=== PATIENT | female | born 1945 | race Caucasian/White ===

== ENCOUNTER 2018-05-16 08:44 | Inpatient (IN) ==
[2018-05-16] MEDS ORDERED: ALUMINUM/MAGNESIUM SUSP 30 ML UDC PO PRN (12:30)
[2018-05-16] MEDS ORDERED: ACETAMINOPHEN 325 MG TAB PO PRN (12:30)
[2018-05-16] MEDS ORDERED: ONDANSETRON INJ 2 MG/ML 2 ML VIAL IV PRN (12:30)
[2018-05-16] MEDS ORDERED: POLYETHYLENE (MIRALAX) 17 GM PACK PO PRN (12:30)
[2018-05-16] MEDS ORDERED: MAGNESIUM HYDROXIDE SUSP 30 ML UDC PO PRN (12:30)
--- NOTE | 2018-05-16 13:05 | History & Physical Report ---
Date of Service May 16, 2018 Assessment & Plan (1) Jaundice: Jaundice/Elevated LFTs -MRCP ordered, consider HIDA scan tomorrow -GBUS from OSH showed sludge in GB, thickened wall (4-5mm) -GI consulted, appreciate recs tomorrow -PRN morphine for acute pain -NPO from midnight -Repeat labs in AM -Labs from OSH this AM: TBili 13.2, DB 7, AST 303, ALT 598, Alk Phos 285 CAD/HTN -Continue home statin, ASA, metoprolol XL 25 -Patient reportedly takes 1.5 tabs of her toprol xl, however rates have been low, may need to consider adjusting Hereditary spherocytosis -s/p 2U PRBCs at [facility] -Patient had been started on folic acid 1mg daily at [facility], will defer to primary team if this should be continued. -Continue to monitor CC -Stool heme neg DVTP: none currently ordered due to potential for procedure tomorrow, reassess CODE: full DISPO: med/surg, awaiting further evaluation (2) Elevated LFTs: (3) HTN (hypertension): (4) CAD (coronary artery disease): (5) Hereditary spherocytosis: History of Present Illness Chief Complaint: Abnormal LFTs Primary Care Provider: Dav Arroyo Riley Patient is a pleasant 72 yo F PMH HTN, CAD, "valvular heart disease", hereditary spherocytosis who presents as a direct admit from [facility] due to abnormal LFTs. 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 She was admitted for chest pain rule out. Pt has h/o cardiac cath in 10/2017 which showed hemodynamically insignificant eccentric LAD blockage of 60%. No EKG changes were found and trops were neg x 3. Pt's pain did not improve significantly with nitro, but maalox and 1 dose of morphine did resolve the pain. Labs on admission were otherwise insignificant; baseline anemia, heme neg stool, normal WBC, vitals stable. Yesterday, patient had acute abdominal pain, new onset jaundice and a notable decrease in hemoglobin to 7.9. She was transfused 2U PRBC and her Hb jens to 11.5 today. She also notes very dark "coffee" colored urine and [id number]-uxot-epupt stool. She is unsure if she has been losing weight or not recently. Also noted on today's labs were the following: TBili 13.2 (5.7), DBili 7, AST 303 (100), A LT 598 (72), Urine urobili >8 urine bili 1+. GBUS showed sludge in GB and thickened GB wall (4-5mm).Patient was transferred for further evaluation and investigation into sudden change in LFTs. Patient currently asymptomatic. Notes jaundice and abnormal urine color. Allergies Allergy/AdvReac Type Severity Reaction Status Date / Time chocolate flavor Allergy Severe MIGRANES Verified 02/11/12 12:44 Sulfa (Sulfonamide Allergy Severe Rash Verified 05/16/18 13:33 Antibiotics) Home Medications Home Medications Medication Instructions Recorded Confirmed Type CYANOCOBALAMIN (VITAMIN B-12 INJ) #0 02/11/12 History Lactobacillus Acidophilus 1 tab PO TID #0 tab 02/11/12 History (Lactinex) MULTIPLE VITAMIN (MULTIVITAMIN) 1 tab PO DAILY #0 tab 02/11/12 History aspirin 05/16/18 History atorvastatin 05/16/18 History metoprolol succinate 05/16/18 History Past Med/Surg History Medical History CAD (coronary artery disease) HTN (hypertension) Hereditary spherocytosis Surgical History History of appendectomy Family History Father Heart attack Social History Preferred Language: Thai Communication Ability: Effective 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 Beliefs That Will Affect Care: None Current Living Situation: Spouse Other Information That Helps Us Care for You: No Feels Safe at Home: Yes Safety Concerns: Feels Safe At This Time Smoking Status: Never smoker Hx Alcohol Use: Yes Hx Substance Use: No Review of Systems All systems reviewed & are unremarkable except as noted in HPI & below Constitutional: no fever, no chills, no body aches and no anorexia Ear, Nose, Mouth, Throat: + dry mouth Respiratory: no cough and no dyspnea Cardiovascular: no chest pain, no radiating jaw, neck or arm pain and no edema Gastrointestinal: + change in stools; no abdominal pain, no belching, no nausea and no vomiting Genitourinary (Female): + problem reported (brown-colored urine) Musculoskeletal: + back pain (chronic x 1 year) Integumentary: + dry skin, + yellowing of the skin and + change in skin color Physical Exam Vital Signs (Past 24 Hours): Last Vital Signs Temp 36.6 C 05/16/18 11:43 Pulse 67 05/16/18 11:43 Resp 16 05/16/18 11:43 BP 135/62 05/16/18 11:43 Pulse Ox 95 05/16/18 11:43 Constitutional: WD/WN, vitals as above no acute distress and not ill appearing Eyes: + scleral abnormality (Scleral icterus) ENMT: Mouth: + oral mucosal abnormality (Dry mouth) Neck: normal visual inspection Respiratory: normal respiratory effort, lungs clear to auscultation Cardiovascular: Rate/Rhythm: regular rhythm and + bradycardic Heart Sounds: no murmur Gastrointestinal (Abdomen): Inspection/Auscultation: abdomen normal to inspection and normal bowel sounds Percussion/Palpation: + abdomen tender (Macedo's sign +in RUQ, - in LUQ) Musculoskeletal: no cyanosis or clubbing, extremities motor strength 5/5 Skin: + turgor decreased and + jaundice Neurologic: PERRL, EOMI, accommodation nl, no face palsy, no dysarthria Psychiatric: A+Ox3, euthymic affect Code Status & VTE Plan Code Status Full Supervising Physician Co-Signing Physician Notes I saw and examined the patient independently. I discussed the plan of care with the resident with the following summary/exceptions: 72yo F w/ hx of non-obstructive CAD (60% LAD lesion on cath in 10/2017, no stent), HTN, and hereditary spherocytosis who presents as a transfer from [facility] with elevated liver enzymes and Tbili for further GI work-up. Today, apart from being jaundice, she is entirely asymptomatic. Feels well. No focal infectious findings, and no further abdominal pain, nausea, vomiting, or other symptoms. 1) Jaundice - Ddx includes hemolysis vs. obstructive process vs. combination. Likely some hemolysis from her spherocytosis, but with the acute elevation the 2nd day of hospitalization, concern for obstructive process as well. MRCP pending, GI consult and labs in the morning. Currently pain-free. 2) CAD - 60% LAD lesion on cath in 10/2017, no stent. Troponins negative x 3 at [facility] and no EKG changes. Continue beta-aly. 3) HTN - Normotensive while here. Continue beta-aly. Resident Activity Tracking Resident Involvement: Resident Care Provided Care Provided: [facility]
--- NOTE | 2018-05-16 15:50 | Magnetic Resonance Report ---
Study: MRCP HISTORY: Jaundice. Prior studies: None. FINDINGS: The lung bases appear clear. Mild splenomegaly. Liver appears uniform. Gallbladder demonstrates a moderately edematous gallbladder wall. Moderate respiratory and somatic motion compromises technical quality of the visibility of the biliar y and pancreatic ductal systems. There is no dilatation of the pancreatic duct. Reformatted images show incomplete visibility of distal common duct. Transaxial images suggests small filling defects within the distal duct. This is highly suspect for choledocholithiasis. Remainder of the upper abdomen is unremarkable. Bowel pattern is nonobstructive. IMPRESSION: 1. Moderate gallbladder wall thickening. 2. Possible small filling defects within the distal common duct on the axial acquisition series. 3. This suggests the possibility of small distal common duct choledocholithiasis. 4. Remainder the study are remarkable only for moderate splenomegaly. Electronically signed by: Ridge Winn M.D. 05/16/2018 3:48 PM
[2018-05-16] MEDS ORDERED: MoRPHine SULFATE 2 MG/ML CARP IV PRN (16:45)
[2018-05-17 06:59] LABS: Basophils # (auto) 0.02 K/uL (0-0.2); Basophils % (auto) 0.6 %; Eosinophils # (auto) 0.13 K/uL (0-0.5); Eosinophils % (auto) 3.8 %; Hematocrit (blood only) 36.3 % (37-47); Hemoglobin 12.4 g/dL (12.0-16.0); Immature Granulocytes # (auto) 0.01 K/uL (0.00-0.02); Immature Granulocytes % (auto) 0.3 %; Lymphocytes # (auto) 0.68 K/uL (1.2-3.4); Lymphocytes % (auto) 19.7 %; Mean Corpuscular Hgb Conc 34.2 g/dL (32-36); Mean Corpuscular Volume 90.3 fL (80-100); Mean Platelet Volume 9.5 fL (7.4-10.4); Monocytes # (auto) 0.28 K/uL (0.11-0.59); Monocytes % (auto) 8.1 %; Neutrophils # (auto) 2.33 K/uL (1.4-6.5); Neutrophils % (auto) 67.5 %; Platelet Count 193 K/uL (130-400); RDW Coefficient of Variation 19.8 % (11.5-14.5); RDW Standard Deviation 64.2 fL (36.4-46.3); Red Blood Count 4.02 M/uL (4.2-5.4); White Blood Count 3.45 K/uL (4.8-10.8)
[2018-05-17 07:31] LABS: Albumin Level 3.7 gm/dl (3.4-5.0); BUN Creatinine Ratio 19.3 (10-20); Bilirubin Direct 1.3 mg/dl (0-0.2); Calcium 8.5 mg/dl (8.5-10.1); Creatinine Clr Calc Pharmacy 56.5 ml/min; Est GFR (Non-African American) 78.5; Potassium 3.6 mmol/L (3.5-5.1)
[2018-05-17 07:34] LABS: Bilirubin,Total 5.1 mg/dl (0.2-1); Globulin 3.6 gm/dl (2.5-4.0); Total Protein 7.4 gm/dl (6.4-8.2)
[2018-05-17] MEDS: ASPIRIN 81 MG ECTAB PO SCH (08:50)
[2018-05-17] MEDS: METOPROLOL SUCC 25MG EXT REL TAB PO SCH (08:50)
[2018-05-17] MEDS: MULTIVITAMIN TAB PO SCH (08:50)
--- NOTE | 2018-05-17 16:04 | Family Medicine Progress Note ---
Date of Service May 17, 2018 Assessment & Plan (1) Jaundice: 72-year-old female with past medical history of hypertension, CAD, hereditary spherocytosis presents to [facility] with jaundice, abdominal pain, elevated liver enzymes. She was transferred from [facility] where she was being evaluated for ACS due to presentation of atypical chest pain versus abdominal pain. ACS workup was negative. Patient has a past medical history of CAD in LAD 66% occlusion. She was also found to be anemic at [facility] and received 2 units of blood. 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 Hemolytic process considering the splenomegaly and elevations in bilirubin Stable hemoglobin following 2 units of blood at [facility] CAD/hypertension Holding statin Continue aspirin, metoprolol -recent ACS work up negative at outside facility DVT prophylaxis SCDs Chemical prophylaxis contraindicated in the setting of acute anemia (2) Hereditary spherocytosis: (3) CAD (coronary artery disease): (4) HTN (hypertension): (5) Elevated LFTs: Supervising Physician Co-Signing Physician Notes Resident Physician Supervision Note: I independently interviewed and examined the patient and verified the oh[place] history and physical, reviewed labs and image studies, discussed the case with the resident Dr. Vargas, made edits to the above note and agree with the findings and care plan. Subjective 72-year-old female with past medical history of hypertension, CAD, hereditary spherocytosis presents to [facility] with jaundice, abdominal pain, elevated bilirubin and liver enzymes. She was transferred from [facility] where she was being evaluated for ACS due to presentation of atypical chest pain versus abdominal pain. ACS workup was negative. Patient has a past medical history of CAD in LAD 66% occlusion. Today the patient states that her abdominal pain is improved. She has not required pain medications. She has been n.p.o. overnight. Review of systems Constitutional; no fevers, chills, night sweats Chest; no chest pain, no palpitations, no shortness of breath Abdomen; no abdominal pain, no nausea/vomiting/diarrhea Physical Exam Vital Signs (Past 24 Hours): Last Vital Signs Temp 36.5 C 05/17/18 15:01 Pulse 57 L 05/17/18 15:01 Resp 18 05/17/18 15:01 BP 155/71 H 05/17/18 15:01 Pulse Ox 96 05/17/18 15:01 Constitutional: WD/WN, vitals as above Eyes: PERRL, conjunctivae normal, anicteric sclerae Neck: trachea midline, no thyromegaly Cardiovascular: RRR, no murmur, no edema Gastrointestinal (Abdomen): normal bowel sounds, soft, nontender, no hepatosplenomegaly Skin: no rashes, warm and dry + jaundice Psychiatric: A+Ox3, euthymic affect Results & Data Laboratory Results Laboratory Last Values WBC 3.45 K/uL (4.8-10.8) L 05/17/18 06:44 RBC 4.02 M/uL (4.2-5.4) L 05/17/18 06:44 Hgb 12.4 g/dL (12.0-16.0) 05/17/18 06:44 Hct 36.3 % (37-47) L 05/17/18 06:44 MCV 90.3 fL (80-100) 05/17/18 06:44 MCH 30.8 pg (25-34) 05/17/18 06:44 MCHC 34.2 g/dL (32-36) 05/17/18 06:44 RDW Std Deviation 64.2 fL (36.4-46.3) H 05/17/18 06:44 RDW Coeff of James 19.8 % (11.5-14.5) H 05/17/18 06:44 Plt Count 193 K/uL (130-400) 05/17/18 06:44 MPV 9.5 fL (7.4-10.4) 05/17/18 06:44 Immature Gran % (Auto) 0.3 % 05/17/18 06:44 Neut % (Auto) 67.5 % 05/17/18 06:44 Lymph % (Auto) 19.7 % 05/17/18 06:44 [place] % (Auto) 8.1 % 05/17/18 06:44 Eos % (Auto) 3.8 % 05/17/18 06:44 Baso % (Auto) 0.6 % 05/17/18 06:44 Immature Gran # (Auto) 0.01 K/uL (0.00-0.02) 05/17/18 06:44 Neut # (Auto) 2.33 K/uL (1.4-6.5) 05/17/18 06:44 Lymph # (Auto) 0.68 K/uL (1.2-3.4) L 05/17/18 06:44 [place] # (Auto) 0.28 K/uL (0.11-0.59) 05/17/18 06:44 Eos # (Auto) 0.13 K/uL (0-0.5) 05/17/18 06:44 Baso # (Auto) 0.02 K/uL (0-0.2) 05/17/18 06:44 Sodium 142 mmol/L (136-145) 05/17/18 06:44 Potassium 3.6 mmol/L (3.5-5.1) 05/17/18 06:44 Chloride 108 mmol/L (98-107) H 05/17/18 06:44 Carbon Dioxide 26 mmol/L (21-32) 05/17/18 06:44 Anion Gap 8.0 (3-11) 05/17/18 06:44 BUN 15 mg/dl (7-18) 05/17/18 06:44 Creatinine 0.75 mg/dl (0.6-1.2) 05/17/18 06:44 Est Cr Clr Drug Dosing 56.5 ml/min 05/17/18 06:44 Est GFR ( Amer) 91.0 05/17/18 06:44 Est GFR (Non-Af Amer) 78.5 05/17/18 06:44 BUN/Creatinine Ratio 19.3 (10-20) 05/17/18 06:44 Glucose 93 mg/dl (70-99) 05/17/18 06:44 Calcium 8.5 mg/dl (8.5-10.1) 05/17/18 06:44 Total Bilirubin 5.1 mg/dl (0.2-1) H 05/17/18 06:44 Direct Bilirubin 1.3 mg/dl (0-0.2) H 05/17/18 06:44 AST 142 U/L (15-37) H 05/17/18 06:44 ALT 437 U/L (12-78) H 05/17/18 06:44 Alkaline Phosphatase 238 U/L (45-117) H 05/17/18 06:44 Lactate Dehydrogenase 180 U/L (84-246) 05/17/18 06:44 Total Protein 7.4 gm/dl (6.4-8.2) 05/17/18 06:44 Albumin 3.7 gm/dl (3.4-5.0) 05/17/18 06:44 Globulin 3.6 gm/dl (2.5-4.0) 05/17/18 06:44 Albumin/Globulin Ratio 1.0 (0.9-2) 05/17/18 06:44 Lipase 94 U/L (73-393) 05/17/18 06:44 Resident Activity Tracking Resident Involvement: Resident Care Provided Care Provided: Adult [facility]
[2018-05-17] MEDS ORDERED: INDOMETHACIN 50 MG SUPP PR PRN (16:05)
--- NOTE | 2018-05-17 16:29 | Consultation Report ---
DATE OF CONSULTATION: 05/17/2018 GI CONSULT NOTE REASON FOR CONSULTATION: Jaundice. HISTORY OF PRESENT ILLNESS: The patient is a 72-year-old who presented to [facility] 3 days ago with jaundice and upper abdominal and chest pain. She does have a history of coronary artery disease and MD was evaluated and ruled out. She did have a bilirubin of 5 and her other liver tests were also elevated. A subsequent MRCP showed that she probably has a common bile duct stone and ERCP is requested prompting transfer to [facility]. PAST MEDICAL HISTORY: Remarkable for hereditary spherocytosis. She did receive 2 units of red cells at [facility] due to anemia. She is on maintenance folic acid. HOME MEDICATIONS: Include vitamin B12, folic acid, aspirin, atorvastatin, metoprolol, multiple vitamin and a probiotic. ALLERGIES: SULFA. FAMILY HISTORY: Positive for heart attack in the father. SOCIAL HISTORY: The patient lives with her , does not smoke, uses minimal alcohol. REVIEW OF SYSTEMS: Positive for dark urine. She denies pruritus. PHYSICAL EXAMINATION: GENERAL: The patient appears in no acute distress. VITAL SIGNS: Normal. She is afebrile. Sclerae are mildly icteric. LUNGS: Clear. HEART: Showed a normal S1 and S2. Regular rate and rhythm without murmurs, rubs, or gallops. ABDOMEN: Shows a low midline scar from previous appendectomy when she was in 12th grade. There are no masses or hepatosplenomegaly. IMPRESSION: The patient has jaundice, most likely from the common bile duct stone. The patient will be started empirically on IV Cipro and will schedule for an ERCP tomorrow for further evaluation.
[2018-05-17] MEDS: CIPROFLOXACIN 400 MG/200 ML BAG IV SCH (17:26)
[2018-05-18] MEDS: CIPROFLOXACIN 400 MG/200 ML BAG IV SCH (05:52)
[2018-05-18 06:15] LABS: Basophils # (auto) 0.02 K/uL (0-0.2); Basophils % (auto) 0.6 %; Eosinophils # (auto) 0.13 K/uL (0-0.5); Eosinophils % (auto) 3.8 %; Hematocrit (blood only) 37.4 % (37-47); Hemoglobin 12.8 g/dL (12.0-16.0); Immature Granulocytes # (auto) 0.01 K/uL (0.00-0.02); Immature Granulocytes % (auto) 0.3 %; Lymphocytes # (auto) 0.96 K/uL (1.2-3.4); Mean Corpuscular Hgb Conc 34.2 g/dL (32-36); Mean Corpuscular Volume 91.2 fL (80-100); Mean Platelet Volume 9.6 fL (7.4-10.4); Monocytes # (auto) 0.37 K/uL (0.11-0.59); Monocytes % (auto) 10.8 %; Neutrophils # (auto) 1.94 K/uL (1.4-6.5); Neutrophils % (auto) 56.5 %; Platelet Count 194 K/uL (130-400); RDW Coefficient of Variation 19.3 % (11.5-14.5); RDW Standard Deviation 64.8 fL (36.4-46.3); White Blood Count 3.43 K/uL (4.8-10.8)
[2018-05-18 06:49] LABS: Albumin Level 3.6 gm/dl (3.4-5.0); BUN Creatinine Ratio 26.2 (10-20); Calcium 8.4 mg/dl (8.5-10.1); Est GFR (Non-African American) 81.1; Globulin 3.6 gm/dl (2.5-4.0); Potassium 3.8 mmol/L (3.5-5.1); Total Protein 7.2 gm/dl (6.4-8.2)
[2018-05-18] MEDS: MULTIVITAMIN TAB PO SCH (07:46)
[2018-05-18] MEDS: ASPIRIN 81 MG ECTAB PO SCH (07:46)
[2018-05-18] MEDS: METOPROLOL SUCC 25MG EXT REL TAB PO SCH (07:50)
--- NOTE | 2018-05-18 11:13 | Discharge Summary ---
Date of Service May 18, 2018 Admission HPI Per Admitting Provider Patient is a pleasant 72 yo F PMH HTN, CAD, "valvular heart disease", hereditary spherocytosis who presents as a direct admit from [facility] due to abnormal LFTs. 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 She was admitted for chest pain rule out. Pt has h/o cardiac cath in 10/2017 which showed hemodynamically insignificant eccentric LAD blockage of 60%. No EKG changes were found and trops were neg x 3. Pt's pain did not improve significantly with nitro, but maalox and 1 dose of morphine did resolve the pain. Labs on admission were otherwise insignificant; baseline anemia, heme neg stool, normal WBC, vitals stable. Yesterday, patient had acute abdominal pain, new onset jaundice and a notable decrease in hemoglobin to 7.9. She was transfused 2U PRBC and her Hb jens to 11 .5 today. She also notes very dark "coffee" colored urine and [id number] stool. She is unsure if she has been losing weight or not recently. Also noted on today's labs were the following: TBili 13.2 (5.7), DBili 7, AST 303 (100), ALT 598 (72), Urine urobili >8 urine bili 1+. GBUS showed sludge in GB and thickened GB wall (4-5mm).Patient was transferred for further evaluation and investigation into sudden change in LFTs. Patient currently asymptomatic. Notes jaundice and abnormal urine color. Admission Exam Per Admitting Provider Constitutional: WD/WN, vitals as above no acute distress and not ill appearing Eyes: + scleral abnormality (Scleral icterus) ENMT: Mouth: + oral mucosal abnormality (Dry mouth) Neck: normal visual inspection Respiratory: normal respiratory effort, lungs clear to auscultation Cardiovascular: Rate/Rhythm: regular rhythm and + bradycardic Heart Sounds: no murmur Gastrointestinal (Abdomen): Inspection/Auscultation: abdomen normal to inspection and normal bowel sounds Percussion/Palpation: + abdomen tender (Macedo's sign +in RUQ, - in LUQ) Musculoskeletal: no cyanosis or clubbing, extremities motor strength 5/5 Skin: + turgor decreased and + jaundice Neurologic: PERRL, EOMI, accommodation nl, no face palsy, no dysarthria Psychiatric: A+Ox3, euthymic affect Principal Diagnosis choledocholithiasis Discharge Exam Constitutional WD/WN, vitals as above Eyes PERRL, conjunctivae normal, anicteric sclerae ENMT external ear and nose normal, oropharynx normal Neck trachea midline, no thyromegaly Respiratory normal respiratory effort, lungs clear to auscultation Cardiovascular RRR, no murmur, no edema Gastrointestinal (Abdomen) normal bowel sounds, soft, nontender, no hepatosplenomegaly Skin no rashes, warm and dry + jaundice (improved compared to yesterday ) Psychiatric A+Ox3, euthymic affect Discharge Data Allergies Allergy/AdvReac Type Severity Reaction Status Date / Time chocolate flavor Allergy Severe MIGRANES Verified 02/11/12 12:44 Sulfa (Sulfonamide Allergy Severe Rash Verified 05/16/18 13:33 Antibiotics) Consultations 05/16/18 12:30 Consult Gastroenterology Routine Procedures Performed Operation Date: 05/18/18 08:40 <No data on this case meets the specified criteria> Ordered Studies 05/16/18 13:59 MR MRCP Urgent [place], [place] [phone] Magnetic Resonance Report Patient: MORELIA OTOOLE Date: 05/16/18 MR#: [id number]: [id number] [facility] Acct ID:[id number]: [facility] Zip[facility] [place] [address] Age: 72Location: 4E Sex: F Room/Bed: [facility] Att Phy: Nilo Martinez MDDiagnosis: ELEVATED BILIRUBIN Ruthann Phy: Dav Lin M.D.Service Date: 05/16/18 Fam Phy: Interpreting Phy: Ridge Winn MD Admit Phy: Nilo Martinez MD Ordering Phy: Nilo Martinez MD cc: ~ Study: MRCP HISTORY: Jaundice. Prior studies: None. FINDINGS: The lung bases appear clear. Mild splenomegaly. Liver appears uniform. Gallbladder demonstrates a moderately edematous gallbladder wall. Moderate respiratory and somatic motion compromises technical quality of the visibility of the biliary and pancreatic ductal systems. There is no dilatation of the pancreatic duct. Reformatted images show incomplete visibility of distal common duct. Transaxial images suggests small filling defects within the distal duct. This is highly suspect for choledocholithiasis. Remainder of the upper abdomen is unremarkable. Bowel pattern is nonobstructive. IMPRESSION: 1. Moderate gallbladder wall thickening. 2. Possible small filling defects within the distal common duct on the axial acquisition series. 3. This suggests the possibility of small distal common duct choledocholithiasis. 4. Remainder the study are remarkable only for moderate splenomegaly. Electronically signed by: Ridge Winn M.D. 05/16/2018 3:48 PM Dictated: 05/16/18 1542 Transcribed: 05/16/18 1542 Hospital Course (1) Elevated LFTs: (1) Jaundice: 72-year-old female with past medical history of hypertension, CAD, hereditary spherocytosis presents to [facility] with jaundice, abdominal pain, elevated liver enzymes. She was transferred from [facility] where she was being evaluated for acute coronary syndrome due to presentation of atypical chest pain versus abdominal pain. ACS workup was negative. 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 While there was no conclusive biliary stone visualized, there was filing defect identified in the distal common duct and sphincterotomy was subsequently performed. - Patient's labs improved by the time of discharge. 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 Hemolytic process entertained considering the splenomegaly and elevations in bilirubin Stable hemoglobin following 2 units of blood at [facility] - Recommend repeat CBC within the first week of discharge CAD/hypertension -recent ACS work up negative at outside facility, [facility] -History of LAD stenosis, 66% (2) Hereditary spherocytosis: (3) CAD (coronary artery disease): (4) HTN (hypertension): (5) Jaundice: Total Time Total Time Spent Total Time Spent (In Minutes): greater than 30 minutes Discharge Plan Discharge Items Patient Disposition: Home - Self-Care Reason For Visit: ELEVATED BILIRUBIN Discharge Diagnosis: Obstructing Gallstone Discharge Goals: Improve disease control and Therapeutic intervention Activity: Resume your previous activity Non-emergency contact: Primary Care Provider Call non-emergency contact if: you have any medication questions Follow-up/Referrals: Dav Lin [Primary Care Provider] - 05/26/18 1:00 pm (Please, follow up with Dr. Lin on ThursdayMay 26 at 1:00 pm. *If you need to change this appointment, call the office at [phone].) Diet: Heart Healthy Addtl Provider Instructions: You were transferred to [facility] for an elevated Bilirubin level. An elevated bilirubin level causes jaundice which is a yellowing of the skin. Elevated bilirubin may also change the color of your urine. You received an ERCP procedure by Dr. Gamez on 05/18/18. The ERCP was able clear the tube from your gallbladder to the instestines. While we did not find a stone, you likely had a stone or "sludge" that was obstructing this tube. Information on gallstones and ERCPs will be printed for you on discharge, please read this information carefully. Gallstones may cause pain with meals and may obstruct the common bile duct causing an inflammation of the gallbladder. Please return to the hospital if you experience severe upper right quadrant pain or become unable to tolerate solids and liquids. Prescriptions: Continued CYANOCOBALAMIN (VITAMIN B-12 INJ) 1,000 MCG/ INJECTION Qty: 0 RF: 0 Lactobacillus Acidophilus (Lactinex) tablet 1 tab PO TID Qty: 0 RF: 0 MULTIPLE VITAMIN (MULTIVITAMIN) 1 TAB tablet 1 tab PO DAILY Qty: 0 RF: 0 atorvastatin 40 mg tablet RF: 0 aspirin 81 mg Tablet,Delayed Release (Dr/Ec) RF: 0 metoprolol succinate 25 mg tablet extended release 24 hr RF: 0 Stand-Alone Forms: [facility]/Other Patient Handouts: ERCP, Gallstones Dc Discharge Orders: Discharge Order (Routine); Ordered 05/18/18 Ordered By: Freddy Vargas Admission Data Admit Date/Time: 05/16/18 11:11 Attending Provider: Isabel Boswell Admit Provider: Nilo Martinez Primary Care Provider: Dav Lin Other Providers: Nilo Martinez ; Tato Gamez Service: Medical Other Interventions: Discharge Summary Assessment (RN) Last Done: 05/18/18 19:07 DC Date/Time DO NOT enter until pt leaves facility: 05/18/18 19:27 Supervising Physician Co-Signing Physician Notes Resident Physician Supervision Note: I independently interviewed and examined the patient and verified the ohara history and physical, reviewed labs and image studies, discussed the case with the resident Dr. Vargas and agree with the findings and care plan. Time spent in discharge 35 min Resident Activity Tracking Resident Involvement: Resident Care Provided Care Provided: Adult Hospital Medicine
--- NOTE | 2018-05-18 13:29 | Anesthesiology Consultation ---
Date of Service May 18, 2018 Assessment & Plan (1) Encounter for pre-operative examination: Chart Review Chart Review: Acceptable Risk for Surgery and Patient NOT seen in Pre Admission Testing Consults Requested none History Surgery Operation Date: 05/18/18 08:40 Proposed Procedures p Endoscopic Retrograde Cholangiopancreato Corey Gamez Height/Weight Height: 5 ft 2 in Weight: 60.7 kg Allergies Allergy/AdvReac Type Severity Reaction Status Date / Time chocolate flavor Allergy Severe MIGRANES Verified 02/11/12 12:44 Sulfa (Sulfonamide Allergy Severe Rash Verified 05/16/18 13:33 Antibiotics) Medications Home Medications Medication Instructions Recorded Confirmed Last Taken CYANOCOBALAMIN (VITAMIN B-12 INJ) #0 02/11/12 Unknown Lactobacillus Acidophilus 1 tab PO TID #0 tab 02/11/12 Unknown (Lactinex) MULTIPLE VITAMIN (MULTIVITAMIN) 1 tab PO DAILY #0 tab 02/11/12 Unknown aspirin 05/16/18 Unknown atorvastatin 05/16/18 Unknown metoprolol succinate 05/16/18 Unknown Active Medications Generic Name Dose Route Start Last Admin Trade Name Freq PRN Reason Stop Dose Admin Aspirin 81 mg 05/17/18 09:00 05/18/18 07:46 Ecotrin Ectab PO 06/16/18 08:59 Not Given QAM BELLA Ciprofloxacin 400 mg in 200 mls @ 100 mls/hr 05/17/18 17:00 05/18/18 08:30 Cipro IV 05/19/18 16:59 Infused Q12H BELLA Infusion Metoprolol Succinate 25 mg 05/17/18 09:00 05/18/18 07:50 Toprol Xl PO 06/16/18 08:59 25 mg QAM BELLA Administration Multivitamins 1 tab 05/17/18 09:00 05/18/18 07:46 Multivitamin Tab PO 06/16/18 08:59 Not Given QAM BELLA Beta Daniel Beta Daniel Taken Within 24 Hours: Yes Past Medical History Medical History CAD (coronary artery disease) seen on heart cath 2017. Presented to OSH, ECG no ischemic changes and troponins negative x3. HTN (hypertension) Hereditary spherocytosis s/p 2 units pRBC's at OSH. Hgb correct to 11 today. Jaundice Past Family History Family History Father Heart attack Past Surgical History Surgical History History of appendectomy Past Anesthesia History No Hx of Anesthesia Complications and No Family Hx of Anesthesia Complications History of PONV No Motion Sickness Screening History of Motion Sickness: No Social History Smoking Status: Never smoker Hx Alcohol Use: Yes alcohol intake frequency: holidays/special occasions only Hx Substance Use: No Exercise / Class Metabolic Activity II 4-5 Yardwork/Stairs/Walk up hill Physical Exam Vital Signs Last Vital Signs Temp 36.8 C 05/18/18 13:58 Pulse 64 05/18/18 13:58 Resp 16 05/18/18 13:58 BP 170/60 H 05/18/18 13:58 Pulse Ox 67 L 05/18/18 13:58 Testing Electrocardiogram Date: 05/16/18 Findings: + SB @ Cardiac Catheterization Date: 10/07/17 hemodynamically insignificant eccentric LAD blockage of 60%. Laboratory Results 05/18/18 05:43 05/18/18 05:43
[2018-05-18] MEDS ORDERED: NEOSTIGMINE METHYLSULFATE 5 MG/5 ML SYR ONE (13:37)
[2018-05-18] MEDS ORDERED: GLYCOPYRROLATE 0.2 MG/ML VIAL ONE (13:37)
[2018-05-18] MEDS ORDERED: ONDANSETRON INJ 2 MG/ML 2 ML VIAL ONE (13:37)
[2018-05-18] MEDS ORDERED: LIDOCAINE HCL 2% 2 ML VIAL/AMP(20MG/ML) INFIL ONE (13:37)
[2018-05-18] MEDS ORDERED: fentaNYL citrate 100 MCG/2 ML VIAL ONE (13:37)
[2018-05-18] MEDS ORDERED: PROPOFOL IV EMULSION 10 MG/ML 20 ML VIAL IV ONE (13:37)
[2018-05-18] MEDS ORDERED: DEXAMETHASONE SOD INJ 4 MG/ML VIAL ONE (13:37)
--- NOTE | 2018-05-18 14:03 | History & Physical Report ---
Date of Service May 18, 2018 History of Present Illness Chief Complaint: jaundice Primary Care Provider: Dav Lin For ERCP Allergies Allergy/AdvReac Type Severity Reaction Status Date / Time chocolate flavor Allergy Severe MIGRANES Verified 02/11/12 12:44 Sulfa (Sulfonamide Allergy Severe Rash Verified 05/16/18 13:33 Antibiotics) Home Medications Home Medications Medication Instructions Recorded Confirmed Type CYANOCOBALAMIN (VITAMIN B-12 INJ) #0 02/11/12 History Lactobacillus Acidophilus 1 tab PO TID #0 tab 02/11/12 History (Lactinex) MULTIPLE VITAMIN (MULTIVITAMIN) 1 tab PO DAILY #0 tab 02/11/12 History aspirin 05/16/18 History atorvastatin 05/16/18 History metoprolol succinate 05/16/18 History Past Med/Surg History Medical History CAD (coronary artery disease) seen on heart cath 2017. Presented to OSH, ECG no ischemic changes and troponins negative x3. HTN (hypertension) Hereditary spherocytosis s/p 2 units pRBC's at OSH. Hgb correct to 11 today. 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 Beliefs That Will Affect Care: None Current Living Situation: Spouse Other Information That Helps Us Care for You: No Feels Safe at Home: Yes Safety Concerns: Feels Safe At This Time Smoking Status: Never smoker Hx Alcohol Use: Yes Hx Substance Use: No Physical Exam Vital Signs (Past 24 Hours): Last Vital Signs Temp 36.8 C 05/18/18 13:58 Pulse 64 05/18/18 13:58 Resp 16 05/18/18 13:58 BP 170/60 H 05/18/18 13:58 Pulse Ox 67 L 05/18/18 13:58 Constitutional: well developed and well nourished Eyes: + scleral abnormality Respiratory: normal respiratory effort Cardiovascular: Rate/Rhythm: regular rate and regular rhythm Gastrointestinal (Abdomen): Percussion/Palpation: abdomen soft
[2018-05-18] MEDS ORDERED: fentaNYL citrate 100 MCG/2 ML VIAL IV PRN (14:19)
[2018-05-18] MEDS ORDERED: ePHEDrine sulfate 50 MG/ML AMP IV PRN (14:19)
[2018-05-18] MEDS ORDERED: ONDANSETRON INJ 2 MG/ML 2 ML VIAL IV PRN (14:19)
[2018-05-18] MEDS ORDERED: ATROPINE SULFATE 0.1 MG/ML 10ML SYR IV PRN (14:19)
--- NOTE | 2018-05-18 15:31 | GI REPORT ---
Patient Name: Ana María Plasencia Procedure Date: 05/18/2018 1:51 PM Date of : 1945 Admit Type: Inpatient Age: 72 Gender: Female Attending MD: Tato Gamez MD Procedure: ERCP Providers: Tato Gamez MD Referring MD: Nilo Martinez Md, Isabel Boswell Indications: Jaundice, Elevated liver enzymes Medicines: General Anesthesia Complications: No immediate complications. Estimated Blood Loss: Estimated blood loss was minimal. Procedure: Pre-Anesthesia Assessment: - Prior to the procedure, a History and Physical was performed, and patient medications, allergies and sensitivities were reviewed. The patient's tolerance of previous anesthesia was reviewed. - The risks and benefits of the procedure and the sedation options and risks were discussed with the patient. All questions were answered and informed consent was obtained. After obtaining informed consent, the scope was passed under direct vision. Throughout the procedure, the patient's blood pressure, pulse, and oxygen saturations were monitored continuously. The Scope was introduced through the mouth, and advanced to the duodenum and used to inject contrast into the bile duct and ventral pancreatic duct. The ERCP was somewhat difficult due to challenging cannulation. Successful completion of the procedure was aided by changing catheter. The patient tolerated the procedure well. Findings: The major papilla was normal. A 6 mm biliary sphincterotomy was made with a short nose sphincterotome using ERBE electrocautery. The sphincterotomy oozed blood. To discover objects, the biliary tree was swept with an 8 mm balloon starting at the upper third of the main bile duct. One stone was removed. No stones remained. Impression: - The major papilla appeared normal. - Choledocholithiasis was found. Complete removal was accomplished by biliary sphincterotomy and balloon extraction. - A biliary sphincterotomy was performed. - The biliary tree was swept. Recommendation: - [facility] patient to [facility] for [facility] care. Tato Gamez M.D. Tato Gamez MD 05/18/2018 3:30:59 PM This report has been signed electronically. Note Initiated On: 05/18/2018 1:51 PM Number of Addenda: 0 I attest to the content of the Intraoperative Record and orders documented therein, exceptions below {[id number]}
--- NOTE | 2018-05-18 16:05 | Fluoroscopy Report ---
FL ERCP biliary ductal CLINICAL HISTORY: Jaundice, abnormal MRCP with probable choledocholithiasis COMPARISON STUDY: MRCP dated 05/16/2018 FLUOROSCOPY TIME: 193 seconds. NUMBER OF FLUOROSCOPIC IMAGES: 4 FINDINGS: 4 intraprocedural fluoroscopic spot images are provided for interpretation. Contrast opacif ies the gallbladder, common bile duct, and a normal caliber pancreatic duct. It is suspected that a s phincterotomy was performed. A balloon catheter is visualized within the common bile duct. The final image demonstrates good ductal washout. IMPRESSION: Intraprocedural fluoroscopic spot images during ERCP. Electronically signed by: David Norman M.D. 05/18/2018 4:04 PM
--- NOTE | 2018-05-18 16:09 | Progress Note ---
DATE: 05/18/2018 The patient underwent an ERCP this afternoon in the OR under general anesthesia. The patient had a normal-looking papilla. Initially, the pancreatic duct was injected and appeared normal. Subsequently, we were able to cannulate the common bile duct after switching catheters. The common bile duct was normal caliber. It appeared that she might have had a small-filling defect in the distal bile duct. A sphincterotomy was performed and the duct was dragged 3 or 4 times with an 8 mm balloon. There was no obvious stone extracted, but there was a little bit of bleeding from the sphincterotomy which may have obscured the bile duct opening at that time. The patient tolerated the procedure well without any major complications. Estimated blood loss was 10 mL and appeared to have stopped at the termination of the procedure. The patient will be returned to her bed, plan on advancing her to a full-liquid diet this afternoon and we will check liver profile and lipase tomorrow.
--- NOTE | 2018-05-18 16:12 | Anesthesiology Progress Note ---
Date of Service May 18, 2018 Anesthesia Post Procedure Vital Signs Vital Signs: Temp Pulse Pulse Resp BP Pulse Ox 05/18/18 16:05 56 L 16 171/55 H 100 05/18/18 15:55 60 16 162/57 H 100 05/18/18 15:45 58 L 16 160/58 H 100 05/18/18 15:39 97.3 F L 58 L 16 165/49 H 100 05/18/18 13:58 98.2 F 64 16 170/60 H 67 L 05/18/18 08:00 97.9 F 63 18 153/62 H 97 05/18/18 07:51 65 05/17/18 22:30 97.9 F 52 L 18 132/69 97 Notes Mental Status: alert / awake / arousable and participated in evaluation Patient Amnestic to Procedure: Yes Nausea / Vomiting: adequately controlled Pain: adequately controlled Airway Patency, RR, SpO2: stable & adequate BP & HR: stable & adequate Hydration State: stable & adequate Anesthetic Complications: no major complications apparent and Pt Satisfied with anesthetic care
== END 2018-05-18 19:27 | disposition home or self-care (01) | DRG 445 ==
LOC: SUATTDRO 11:11 → 4E 11:11

== ENCOUNTER 2019-09-30 12:02 | Inpatient (IN) ==
[2019-09-30] MEDS ORDERED: ADENOSINE IV SOLN 3 MG/ML 2 ML VIAL IV ONE (12:06)
[2019-09-30 12:27] LABS: Basophils # (auto) 0.02 K/uL (0-0.2); Basophils % (auto) 0.5 %; Eosinophils # (auto) 0.02 K/uL (0-0.5); Eosinophils % (auto) 0.5 %; Hemoglobin 11.4 g/dL (12.0-16.0); Lymphocytes # (auto) 0.87 K/uL (1.2-3.4); Lymphocytes % (auto) 23.3 %; Mean Corpuscular Hemoglobin 33.4 pg (25-34); Mean Corpuscular Hgb Conc 34.5 g/dL (32-36); Mean Corpuscular Volume 96.8 fL (80-100); Mean Platelet Volume 9.8 fL (7.4-10.4); Monocytes % (auto) 10.7 %; Neutrophils # (auto) 2.42 K/uL (1.4-6.5); Platelet Count 195 K/uL (130-400); RDW Coefficient of Variation 19.2 % (11.5-14.5); RDW Standard Deviation 67.9 fL (36.4-46.3); Red Blood Count 3.41 M/uL (4.2-5.4); White Blood Count 3.73 K/uL (4.8-10.8)
[2019-09-30] MEDS ORDERED: SODIUM CHLORIDE 0.9% 500 ML IV ONE (12:27)
[2019-09-30] MEDS ORDERED: METOPROLOL TARTRATE 1 MG/ML VIAL IV STA ×2 (12:27→13:40)
--- NOTE | 2019-09-30 12:31 | XRay Report ---
XR chest 1V portable HISTORY: weakness COMPARISON: None. FINDINGS: The lungs are clear. The cardiac silhouette is mildly enlarged. No pleural effusions. No pn eumothorax. No evidence for pulmonary edema. IMPRESSION: Mild cardiomegaly. ACT 112: Negative or not required by law. Electronically signed by: Stanislav Toro M.D. 09/30/2019 12:29 PM
--- NOTE | 2019-09-30 12:35 | Emergency Department Note ---
Impression & Plan Atrial fibrillation with rapid ventricular response, Palpitation, Acute dyspnea ED Provider Note NAME: MORELIA OTOOLE AGE: 74 SEX: F : 1945 ARRIVES VIA: Walk-In INFORMANT: Patient, ED PROVIDER(S): Walter Villalobos DO CHIEF COMPLAINT: Palpitations HPI: The patient is a 74-year-old female who presented to the emergency d [facility] for an evaluation of palpitations and dizziness. The patient states that she has been getting shortness of breath with exertion as well as dizziness. She is also noticed palpitations. She was unable to see her family doctor because of the current COVID-19 outbreak. She states that she did have a follow-up appointment today with her primary hematology office at [facility]. While she was there she had an EKG done which showed a tachycardia. She was sent to the emergency department for further evaluation. The patient states that she has a history of paroxysmal atrial fibrillation. She does not currently take anticoagulation because she is not been in atrial f ibrillation for a long time. She does have a history of valvular heart disease as well as coronary artery disease. She has no stents at this time but she did have a cardiac catheterization over the last few years that did show an LAD lesion. The patient states that she currently has an improvement of her symptoms at rest. She has had no recent illnesses including no nausea vomiting diarrhea or fevers. She is had no cough. ROS: See above HPI for pertinent positives & negatives. A total of 10 systems reviewed and were otherwise negative. PAST MEDICAL HISTORY: See Below PAST SURGICAL HISTORY: See Below FAMILY HISTORY: See Below SOCIAL HISTORY: See Below HOME MEDICATIONS: See Below ALLERGIES: See Below VITALS: See Below PHYSICAL EXAMINATION: GENERAL: Patient is awake alert in no acute distress patient is resting comfortably and showing no signs of anxiety EYES: The conjunctivae are clear. The pupils are round and reactive. EARS, NOSE, MOUTH AND THROAT: The nose is without any evidence of any deformity. Mucous membranes are moist. Tongue is midline. NECK: The neck is nontender and supple. RESPIRATORY: Normal respiratory effort is noted there is no evidence of wheezing rhonchi or rales CARDIOVASCULAR: Tachycardic and irregular rhythm was noted to auscultation. No definite murmur was noted. GASTROINTESTINAL: The abdomen is soft. Abdomen is nontender. MUSCULOSKELETAL/EXTREMITIES: There is no evidence of gross deformity full range of motion is noted in the hips and shoulders. SKIN: There is no obvious evidence of any rash. There is jaundice noted. NEUROLOGIC: Patient is awake alert and oriented x3 strength is symmetric patellar reflexes are 2+ bilaterally MEDICAL DECISION MAKING: The patient is a 74-year-old female who presented to the emergency department for an evaluation of palpitations. She was seen at her primary hematology appointment and was found to be in narrow complex tachycardia. This was first thought to be SVT but on my evaluation it appeared more consistent with atrial fibrillation. The patient is a history of paroxysmal atrial fibrillation but she has not had an episode in many years and for this reason she is not currently on anticoagulation. She does take beta-blockers for other medical conditions. She was treated with IV fluids and IV Lopressor in the emergency department. She was reevaluated multiple times. I discussed the patient's laboratory and radiographic studies with her. Her rate improved significantly and she was feeling much better. I discussed her condition with the on-call [facility] hospitalist group. They have agreed to evaluate the patient in the emergency department for further management and disposition. The patient will likely require anticoagulation but I will defer this decision to the admitting team. Triage Nursing notes reviewed. Prior medical records reviewed Vital Signs: reviewed and remarkable for tachycardia Differential diagnosis: Premature contractions, electrolyte abnormality, cardiac dysrhythmia, thyroid dysfunction, pulmonary embolism, infection, gastrointestinal, as well as other pathologies. ER treatment provided: See below Diagnostics interpreted by me: ECG: EKG was obtained in the emergency department. My interpretation is atrial fibrillation at [address] depressions were noted. There was no PVCs. This was compared to a tracing from May 142018. Atrial fibrillation as well as the ST segment abnormalities are new. Cardiac Monitoring: An order was placed for continuous cardiac monitoring. The monitor shows a rate of 122 with atrial fibrillation rhythm. Laboratory studies: As stated above and show below. Imaging studies: See below Consultation(s): 1350: I discussed this case with Dr. Will. He will evaluate the patient in the emergency department for further management and disposition. ED COURSE: Procedures: none PDMP:reviewed and no issues Critical Care: I have personally spent greater than 35 minutes of critical care time in the direct management of this patient. This includes bedside care, interpretation of diagnostic studies, and testing, discussion with consultants, patient, and family members, and other required patient management activities. This 35 minutes is in excess of all separately billable procedures. Past Med/Surg History Medical History Anemia CAD (coronary artery disease) seen on heart cath 2018. Presented to OSH, ECG no ischemic changes and troponins negative x3. Hereditary spherocytosis s/p 2 units pRBC's at OSH. Hgb correct to 11 today. HTN (hypertension) Hyperlipidemia Jaundice Leaky heart valve PER PT Temporomandibular joint disorder CLICKS [facility] [place] AT DENTIST Surgical History History of appendectomy History of cardiac cath X 3-LAST ONE 2018 THAIS SONG NO STENTS NEEDED Hx laparoscopic cholecystectomy (12/30/18) Laparoscopic Cholecystectomy Dr. Sandhu 12/30/18 Family History Father Myocardial infarction Mother Diabetes Brother Heart disease Sister Family history of diabetes mellitus Family/Other Family history of diabetes mellitus Social History Smoking Status: Never smoker Second Hand Exposure: No; Hx Alcohol Use: Yes Alcohol type: wine Hx Substance Use: No Preferred Language: Arabic Communication Ability: Effective Mate First Required: No Beliefs That Will Affect Care: None marital status: Current Living Situation: Spouse current occupational status: retired Other Information That Helps Us Care for You: No Feels Safe at Home: Yes Safety Concerns: Feels Safe At This Time Allergies Allergies Allergy/AdvReac Type Severity Reaction Status Date / Time chocolate flavor Allergy Severe MIGRANES Verified 09/30/19 15:14 Sulfa (Sulfonamide Allergy Severe Rash Verified 09/30/19 15:14 Antibiotics) Home Meds Home Medications Medication Instructions Recorded Confirmed aspirin 81 mg PO QAM 05/16/18 09/30/19 atorvastatin 40 mg PO QAM 05/16/18 09/30/19 metoprolol succinate 25 mg PO QAM 05/16/18 09/30/19 cyanocobalamin (vitamin B-12) 1,000 mcg IM MONTHLY 12/24/18 09/30/19 ferrous sulfate 325 mg PO HS 12/24/18 09/30/19 folic acid 1 mg PO HS 12/24/18 09/30/19 potassium chloride 10 meq PO QAM 12/24/18 09/30/19 Results & Data (ED) Vital Signs Vital Signs - 24 hr 09/30/19 12:06 09/30/19 12:13 09/30/19 12:15 Temperature 36.9 C Temperature Source Oral Pulse Rate 154 H 141 H 152 H Pulse Rate from SpO2 Sensor 139 H Pulse Rhythm Regular Respiratory Rate 18 27 H 18 Respiratory Effort / Characteristics Non-Labored Spontaneous Non-Labored Spontaneous Respiratory Depth Normal Normal Respiratory Pattern Regular Blood Pressure 117/74 155/74 H Blood Pressure Mean 88 93 Pulse Oximetry 100 100 100 Oxygen Delivery Method Room Air Room Air Sepsis Recent Fever Within 48 Hours No Sepsis New/Unexplained Change in Mental Status No Sepsis Action Taken by Nursing No Action Required 09/30/19 12:30 09/30/19 12:33 09/30/19 13:02 Temperature Temperature Source Pulse Rate 122 H 129 H 99 H Pulse Rate from SpO2 Sensor 145 H 103 H Pulse Rhythm Respiratory Rate 32 H 22 Respiratory Effort / Characteristics Respiratory Depth Respiratory Pattern Blood Pressure 102/77 102/77 130/94 Blood Pressure Mean 83 105 Pulse Oximetry 100 100 Oxygen Delivery Method Sepsis Recent Fever Within 48 Hours Sepsis New/Unexplained Change in Mental Status Sepsis Action Taken by Nursing 09/30/19 13:31 09/30/19 14:24 09/30/19 14:29 Temperature Temperature Source Pulse Rate 100 H 111 H 118 H Pulse Rate from SpO2 Sensor 50 L 118 H Pulse Rhythm Respiratory Rate 25 H 27 H Respiratory Effort / Characteristics Respiratory Depth Respiratory Pattern Blood Pressure 115/81 112/94 112/94 Blood Pressure Mean 86 99 Pulse Oximetry 100 95 Oxygen Delivery Method Room Air Sepsis Recent Fever Within 48 Hours Sepsis New/Unexplained Change in Mental Status Sepsis Action Taken by Nursing 09/30/19 14:31 Temperature Temperature Source Pulse Rate 93 H Pulse Rate from SpO2 Sensor 96 H Pulse Rhythm Respiratory Rate 23 Respiratory Effort / Characteristics Respiratory Depth Respiratory Pattern Blood Pressure 119/78 Blood Pressure Mean 82 Pulse Oximetry 98 Oxygen Delivery Method Sepsis Recent Fever Within 48 Hours Sepsis New/Unexplained Change in Mental Status Sepsis Action Taken by Longterm Medications Current Medication List: was personally reviewed by me Laboratory Data Attestation: I reviewed the patient's lab results. Result diagrams: 09/30/19 12:15 09/30/19 12:15 Lab Results 09/30/19 09/30/19 09/30/19 Range/Units 12:15 12:15 12:15 WBC 3.73 L (4.8-10.8) K/uL RBC 3.41 L (4.2-5.4) M/uL Hgb 11.4 L (12.0-16.0) g/dL Hct 33.0 L (37-47) % MCV 96.8 (80-100) fL MCH 33.4 (25-34) pg MCHC 34.5 (32-36) g/dL RDW Std Deviation 67.9 H (36.4-46.3) fL RDW Coeff of James 19.2 H (11.5-14.5) % Plt Count 195 (130-400) K/uL MPV 9.8 (7.4-10.4) fL Immature Gran % (Auto) 0.0 % Neut % (Auto) 65.0 % Lymph % (Auto) 23.3 % Dundy % (Auto) 10.7 % Eos % (Auto) 0.5 % Baso % (Auto) 0.5 % Neut # (Auto) 2.42 (1.4-6.5) K/uL Lymph # (Auto) 0.87 L (1.2-3.4) K/uL Dundy # (Auto) 0.40 (0.11-0.59) K/uL Eos # (Auto) 0.02 (0-0.5) K/uL Baso # (Auto) 0.02 (0-0.2) K/uL Immature Gran # (Auto) 0.00 (0.00-0.02) K/uL PT 10.7 (9.0-12.0) Seconds INR 1.0 (0.9-1.1) APTT 27.6 (21.0-31.0) Seconds PTT Ratio 1.0 Sodium 142 (136-145) mmol/L Potassium 3.8 (3.5-5.1) mmol/L Chloride 110 H (98-107) mmol/L Carbon Dioxide 25 (21-32) mmol/L Anion Gap 7.0 (3-11) BUN 14 (7-18) mg/dl Creatinine 0.84 (0.6-1.2) mg/dl Est Cr Clr Drug Dosing Not Reportable Est GFR ( Amer) 78.2 Est GFR (Non-Af Amer) 67.5 BUN/Creatinine Ratio 16.7 (10-20) Glucose 96 (70-99) mg/dl Calcium 8.6 (8.5-10.1) mg/dl Magnesium 2.4 (1.8-2.4) mg/dl Total Bilirubin 4.2 H (0.2-1) mg/dl AST 18 (15-37) U/L ALT 35 (12-78) U/L Alkaline Phosphatase 108 (45-117) U/L Troponin I < 0.015 (0-0.045) ng/ml Total Protein 8.1 (6.4-8.2) gm/dl Albumin 4.2 (3.4-5.0) gm/dl Globulin 3.9 (2.5-4.0) gm/dl Albumin/Globulin Ratio 1.1 (0.9-2) TSH 2.730 (0.300-4.500) uIu/ml Urine Color Urine Appearance (Clear) Urine pH (4.5-7.5) Ur Specific Mcguffey (1.000-1.030) Urine Protein (Negative) Urine Glucose (UA) (Negative) Urine Ketones (Negative) Urine Blood (Negative) Urine Nitrite (Negative) Urine Bilirubin (Negative) Urine Urobilinogen (Negative) Ur Leukocyte Esterase (Negative) 09/30/19 Range/Units 14:25 WBC (4.8-10.8) K/uL RBC (4.2-5.4) M/uL Hgb (12.0-16.0) g/dL Hct (37-47) % MCV (80-100) fL MCH (25-34) pg MCHC (32-36) g/dL RDW Std Deviation (36.4-46.3) fL RDW Coeff of James (11.5-14.5) % Plt Count (130-400) K/uL MPV (7.4-10.4) fL Immature Gran % (Auto) % Neut % (Auto) % Lymph % (Auto) % Dundy % (Auto) % Eos % (Auto) % Baso % (Auto) % Neut # (Auto) (1.4-6.5) K/uL Lymph # (Auto) (1.2-3.4) K/uL Dundy # (Auto) (0.11-0.59) K/uL Eos # (Auto) (0-0.5) K/uL Baso # (Auto) (0-0.2) K/uL Immature Gran # (Auto) (0.00-0.02) K/uL PT (9.0-12.0) Seconds INR (0.9-1.1) APTT (21.0-31.0) Seconds PTT Ratio Sodium (136-145) mmol/L Potassium (3.5-5.1) mmol/L Chloride (98-107) mmol/L Carbon Dioxide (21-32) mmol/L Anion Gap (3-11) BUN (7-18) mg/dl Creatinine (0.6-1.2) mg/dl Est Cr Clr Drug Dosing Est GFR ( Amer) Est GFR (Non-Af Amer) BUN/Creatinine Ratio (10-20) Glucose (70-99) mg/dl Calcium (8.5-10.1) mg/dl Magnesium (1.8-2.4) mg/dl Total Bilirubin (0.2-1) mg/dl AST (15-37) U/L ALT (12-78) U/L Alkaline Phosphatase (45-117) U/L Troponin I (0-0.045) ng/ml Total Protein (6.4-8.2) gm/dl Albumin (3.4-5.0) gm/dl Globulin (2.5-4.0) gm/dl Albumin/Globulin Ratio (0.9-2) TSH (0.300-4.500) uIu/ml Urine Color Yellow Urine Appearance Clear (Clear) Urine pH 5.0 (4.5-7.5) Ur Specific Mcguffey 1.013 (1.000-1.030) Urine Protein Negative (Negative) Urine Glucose (UA) Negative (Negative) Urine Ketones Negative (Negative) Urine Blood Negative (Negative) Urine Nitrite Negative (Negative) Urine Bilirubin Negative (Negative) Urine Urobilinogen Negative (Negative) Ur Leukocyte Esterase Negative (Negative) Administered Medications Metoprolol Tartrate (Lopressor) 12.5 mg PO Q6H BELLA Stop: 10/30/19 15:59 Last Admin: 09/30/19 16:53 Dose: 12.5 mg Documented by: [id number] Discontinued Medications Adenosine (Adenosine) Confirm Administered Dose 18 mg IV .STK-MED ONE Stop: 09/30/19 12:07 Last Admin: 09/30/19 12:23 Dose: Not Given Documented by: [id number] Apixaban (Eliquis) 5 mg PO ONE ONE Stop: 09/30/19 15:32 Last Admin: 09/30/19 16:52 Dose: 5 mg Documented by: [id number] Sodium Chloride (Nss) 500 mls @ 999 mls/hr IV .Q31M ONE Stop: 09/30/19 12:57 Last Infusion: 09/30/19 13:05 Dose: 0 mls/hr Documented by: [id number] Admin: 09/30/19 12:33 Dose: 999 mls/hr Documented by: [id number] Sodium Chloride (Nss 1000ml) 500 mls @ 999 mls/hr IV .Q31M ONE Stop: 09/30/19 14:10 Last Infusion: 09/30/19 15:01 Dose: 0 mls/hr Documented by: [id number] Admin: 09/30/19 14:29 Dose: 999 mls/hr Documented by: [id number] Metoprolol Tartrate (Lopressor) 5 mg IV NOW STA Stop: 09/30/19 12:28 Last Admin: 09/30/19 12:33 Dose: 5 mg Documented by: [id number] Metoprolol Tartrate (Lopressor) 5 mg IV NOW STA Stop: 09/30/19 13:41 Last Admin: 09/30/19 14:29 Dose: 5 mg Documented by: [id number] Miscellaneous (Patient's Height And/Or Weight Needed) 1 ea N/A Q1H BELLA Stop: 10/30/19 15:54 Last Admin: 09/30/19 16:05 Dose: 1 ea Documented by: [id number] Imaging Data Radiologist's Impression: XR chest 1V portable HISTORY: weakness COMPARISON: None. FINDINGS: The lungs are clear. The cardiac silhouette is mildly enlarged. No pleural effusions. No pneumothorax. No evidence for pulmonary edema. IMPRESSION: Mild cardiomegaly. ACT 112: Negative or not required by law. Electronically signed by: Stanislav Toro M.D. 09/30/2019 12:29 PM Dictated: 09/30/19 1228 Transcribed: 09/30/19 1228 Blood Pressure Blood Pressure Findings: Normal blood pressure Discharge Plan Visit Data *Final* Discharge Date/Time: 09/30/19 15:40 Chief Complaint: Cardiac Assessment Stated Complaint: SVT ED Provider: Walter Villalobos Discharge Problem: Atrial fibrillation with rapid ventricular response, Palpitation, Acute dyspnea Patient Disposition: Admitted As Inpatient Condition: Good Discharge Instructions Interventions: ED Discharge Assessment Last Done: 09/30/19 15:40
[2019-09-30 12:38] LABS: Partial Thromboplastin Time 27.6 Seconds (21.0-31.0); Prothrombin Time 10.7 Seconds (9.0-12.0)
[2019-09-30 12:44] LABS: Alanine Aminotransferase 35 U/L (12-78); Albumin Level 4.2 gm/dl (3.4-5.0); Aspartate Aminotransferase 18 U/L (15-37); BUN Creatinine Ratio 16.7 (10-20); Blood Urea Nitrogen 14 mg/dl (7-18); Calcium 8.6 mg/dl (8.5-10.1); Carbon Dioxide 25 mmol/L (21-32); Chloride 110 mmol/L (98-107); Est GFR (African American) 78.2; Est GFR (Non-African American) 67.5; Glucose 96 mg/dl (70-99); Magnesium 2.4 mg/dl (1.8-2.4); Potassium 3.8 mmol/L (3.5-5.1); Sodium 142 mmol/L (136-145)
[2019-09-30 13:14] LABS: Albumin Globulin Ratio 1.1 (0.9-2); Alkaline Phosphatase 108 U/L (45-117); Bilirubin,Total 4.2 mg/dl (0.2-1); Globulin 3.9 gm/dl (2.5-4.0); Total Protein 8.1 gm/dl (6.4-8.2); Troponin I < 0.015 ng/ml (0-0.045)
[2019-09-30] MEDS ORDERED: SODIUM CHLORIDE 0.9% 1000ML 500 ML IV ONE (13:40)
--- NOTE | 2019-09-30 14:03 | History & Physical Report ---
Date of Service September 30, 2019 Assessment & Plan (1) Atrial fibrillation with rapid ventricular response: Appears to be rate controlled after metoprolol total 10mg IV given in ER Will continue BB for rate control with metoprolol 12.5mg q6H with hold parameters TSH 2.73 Anticoagulation with Eliquis 5 mg twice daily HIM request for Dr Soler's last outpatient note to determine if patient has a history of this (2) Palpitation: As above (3) Pre-syncope: Likely due to atrial fibrillation above with rapid ventricular rate. If in normal sinus rhythm and still presyncopal will get orthostatics (4) HTN (hypertension): Metoprolol as above (5) Hereditary spherocytosis: Hgb currently normal. Discussed with Dr Alvarenga, no contraindication to anticoagulation. (6) DVT prophylaxis: Eliquis as above Admission and Anticipated Discharge Date Admission Date: 09/30/2019 History of Present Illness Chief Complaint: A. fib with RVR Primary Care Provider: Dav Lin Ana María Plasencia is a 74-year-old female who presents to the emergency room dizzy spells when she stands up and palpitations. Associated shortness of breath and chest tightness on exertion for the past month. Is been going on for a few times a month very occasionally. She would blame it on her coffee. She was at her hematology appointment today and was noticed to have tachycardia. EKG showed atrial fibrillation and she was recommended to go to the emergency room. She has some history of paroxysmal atrial fibrillation although the exact details of this are unknown. She is under Dr. Soler for this, valvular heart disease and coronary artery disease. She has had a prior cardiac cath in 2018 for presumed unstable angina which showed nonobstructive LAD lesion which did not require stent as per the patient. She denies any orthopnea, PND, claudication. Although does note nighttime cramps Allergies Allergy/AdvReac Type Severity Reaction Status Date / Time chocolate flavor Allergy Severe MIGRANES Verified 09/30/19 15:14 Sulfa (Sulfonamide Allergy Severe Rash Verified 09/30/19 15:14 Antibiotics) Home Medications Home Medications Medication Instructions Recorded Confirmed Type aspirin 81 mg PO QAM 05/16/18 09/30/19 History atorvastatin 40 mg PO QAM 05/16/18 09/30/19 History metoprolol succinate 25 mg PO QAM 05/16/18 09/30/19 History cyanocobalamin (vitamin B-12) 1,000 mcg IM MONTHLY 12/24/18 09/30/19 History ferrous sulfate 325 mg PO HS 12/24/18 09/30/19 History folic acid 1 mg PO HS 12/24/18 09/30/19 History potassium chloride 10 meq PO QAM 12/24/18 09/30/19 History Past Med/Surg History Medical History Anemia CAD (coronary artery disease) seen on heart cath 2018. Presented to OSH, ECG no ischemic changes and troponins negative x3. Hereditary spherocytosis s/p 2 units pRBC's at OSH. Hgb correct to 11 today. HTN (hypertension) Hyperlipidemia Jaundice Leaky heart valve PER PT Temporomandibular joint disorder CLICKS [facility] [place] AT DENTIST Surgical History History of appendectomy History of cardiac cath X 3-LAST ONE 2017 THAIS SONG NO STENTS NEEDED Hx laparoscopic cholecystectomy (12/30/18) Laparoscopic Cholecystectomy Dr. Sandhu 12/30/18 Family History Father Myocardial infarction Mother Diabetes Brother Heart disease Sister Family history of diabetes mellitus Family/Other Family history of diabetes mellitus Social History Smoking Status: Never smoker Second Hand Exposure: No; Hx Alcohol Use: Yes Alcohol type: wine Hx Substance Use: No Preferred Language: Uruguayan Communication Ability: Effective Range Scientist Required: No Beliefs That Will Affect Care: None marital status: Current Living Situation: Spouse current occupational status: retired Other Information That Helps Us Care for You: No Feels Safe at Home: Yes Safety Concerns: Feels Safe At This Time Review of Systems Review of Systems: All systems reviewed & are unremarkable except as noted in HPI & below Physical Exam Constitutional: WD/WN, vitals as above Eyes: PERRL, conjunctivae normal, anicteric sclerae ENMT: external ear and nose normal, oropharynx normal Neck: trachea midline, no thyromegaly Respiratory: normal respiratory effort, lungs clear to auscultation Cardiovascular: Rate/Rhythm: + tachycardic and + irregularly irregular Heart Sounds: no murmur Vessels: no JVD Extremities: normal capillary refill; no calf tenderness and no pedal edema Gastrointestinal (Abdomen): normal bowel sounds, soft, nontender, no hepatosplenomegaly Musculoskeletal: no cyanosis or clubbing, extremities motor strength 5/5 Skin: no rashes, warm and dry Neurologic: moves all extremities and awake; not confused Psychiatric: A+Ox3, euthymic affect Lymphatic: no cervical or axillary lymphadenopathy Results & Data Results & Data ([facility]) Vital Signs (Past 12 Hours) Vital Signs Temp Pulse Resp BP Pulse Ox 09/30/19 13:31 100 H 25 H 115/81 100 09/30/19 13:02 99 H 22 130/94 100 09/30/19 12:33 129 H 102/77 09/30/19 12:30 122 H 32 H 102/77 100 09/30/19 12:15 152 H 18 100 09/30/19 12:13 141 H 27 H 155/74 H 100 09/30/19 12:06 36.9 C 154 H 18 117/74 100 Diagnostic Findings XR chest 1V portable IMPRESSION: Mild cardiomegaly. ECG Indication: tachycardia Rate (beats per minute): 132 Rhythm: atrial fibrillation Findings: + nonspecific-ST abn Comparison ECG Date: no prior available Code Status & VTE Plan Code Status DNR/DNI VTE Prophylaxis Plan VTE Prophylaxis will be ordered: Yes PG Care Time/CCT Total # of Minutes Spent Total Time Spent with Patient: Total time spent is greater than 50% in coordination of care (as documented) at patient's floor/unit and/or counseling patient: Coding Level of Care Code 37629 Initial Inpt Care Lvl 3 Diagnoses Atrial fibrillation with rapid ventricular response I48.91 Palpitation R00.2 Pre-syncope R55 HTN (hypertension) I10 Hereditary spherocytosis D58.0 DVT prophylaxis Z29.9
[2019-09-30 15:05] LABS: Appearance Urine Clear (Clear); Bilirubin Urine Negative (Negative); Blood Urine Negative (Negative); Color Urine Yellow; Glucose Urine UA Negative (Negative); Ketones Urine Negative (Negative); Leukocyte Esterase Urine Negative (Negative); Nitrite Urine Negative (Negative); Protein Urine Negative (Negative); Specific Gravity Urine 1.013 (1.000-1.030); Urobilinogen Urine Negative (Negative)
[2019-09-30] MEDS ORDERED: APIXABAN 5 MG TABLET PO ONE (15:31)
[2019-09-30] MEDS ORDERED: ACETAMINOPHEN 325 MG TAB PO PRN (15:51)
[2019-09-30] MEDS ORDERED: PATIENT'S HEIGHT AND/OR WEIGHT NEEDED SCH (15:55)
--- NOTE | 2019-09-30 16:09 | Electrocardiogram Report ---
Test Reason : Blood Pressure : / mmHG Vent. Rate : 132 BPM Atrial Rate : 129 BPM P-R Int : 000 ms QRS Dur : 076 ms QT Int : 314 ms P-R-T Axes : 000 -02 078 degrees QTc Int : 465 ms Poor data quality, interpretation may be adversely affected Atrial fibrillation with rapid ventricular response Nonspecific ST and T wave abnormality Abnormal ECG No previous ECGs available Confirmed by Walter Flor ([id number]) on 09/30/2019 4:09:12 PM Referred By: REFERRED SELF Confirmed By:Walter Flor
--- NOTE | 2019-09-30 16:14 | Electrocardiogram Report ---
Test Reason : Blood Pressure : / mmHG Vent. Rate : 074 BPM Atrial Rate : 277 BPM P-R Int : 000 ms QRS Dur : 076 ms QT Int : 394 ms P-R-T Axes : 000 -17 014 degrees QTc Int : 437 ms Normal sinus rhythm with 1st degree A-V block Nonspecific T wave abnormality Abnormal ECG When compared with ECG of 30-SEP-2019 12:13, (unconfirmed) Sinus rhythm has replaced Atrial fibrillation Vent. rate has decreased BY 58 BPM Nonspecific T wave abnormality no longer evident in Lateral leads Confirmed by Walter Flor ([id number]) on 09/30/2019 4:14:52 PM Referred By: REFERRED SELF Confirmed By:Walter Flor
[2019-09-30] MEDS: METOPROLOL TARTRATE 25 MG TAB PO SCH ×2 (16:53→22:09)
[2019-09-30] MEDS: FERROUS SULFATE 325 MG TAB PO SCH (20:08)
[2019-09-30] MEDS: APIXABAN 5 MG TABLET PO SCH (20:08)
[2019-09-30] MEDS: FOLIC ACID 1 MG TAB PO SCH (20:09)
[2019-10-01] MEDS: METOPROLOL TARTRATE 25 MG TAB PO SCH ×4 (04:39→20:05)
[2019-10-01] MEDS: ASPIRIN 81 MG ECTAB PO SCH (08:35)
[2019-10-01] MEDS: APIXABAN 5 MG TABLET PO SCH ×2 (08:35→20:05)
[2019-10-01] MEDS: POTASSIUM CHLORIDE 10 MEQ TABCR PO SCH (08:35)
[2019-10-01] MEDS: ATORVASTATIN 40 MG TAB PO SCH (08:35)
[2019-10-01 09:15] LABS: Hematocrit (blood only) 29.1 % (37-47)
[2019-10-01 09:42] LABS: BUN Creatinine Ratio 16.3 (10-20); Calcium 8.7 mg/dl (8.5-10.1); Creatinine Clr Calc Pharmacy 47.1 ml/min; Est GFR (African American) 78.2; Est GFR (Non-African American) 67.5; Potassium 3.8 mmol/L (3.5-5.1)
--- NOTE | 2019-10-01 11:15 | XCELERA ---
[id number]
--- NOTE | 2019-10-01 15:35 | Hospitalist Progress Note ---
Date of Service October 01, 2019 Assessment & Plan (1) Atrial fibrillation with rapid ventricular response: Better rate control today with increased metoprolol dosing however still having episodes of a. fib and despite being relatively rate controlled she is symptomatically presyncopal Given she is converting spontaneously will opt for rhythm control with flecainide - discussed with Dr Tavarez and will consult for him to see tomorrow (start 100mg BID) Switch to metoprolol 25mg PO BID TSH 2.73, severe left atrial dilation likely driving a. fib ECHO - no wall motion abnormalities, small pericardial effusion, mild to moderate mitral regurgitation possibly contributing towards left atrial size Anticoagulation with Eliquis 5 mg twice daily (2) Palpitation: As above (3) Pericardial effusion: Small. Would be unable to sample. No known malignancy, [place], infection. Lyme testing added to AM labs Will need repeat echocardiogram with Dr Soler for resolution (4) Pre-syncope: Continues to have presyncopal episodes related to A. fib with rate in 120s (5) CAD (coronary artery disease): Continue ASA, atorvastatin (6) HTN (hypertension): Metoprolol as above (7) Hereditary spherocytosis: Hgb currently normal. Discussed with Dr Alvarenga on admission, no contraindication to anticoagulation. (8) DVT prophylaxis: Eliquis as above Admission and Anticipated Discharge Date Admission Date: September 30, 2019 Anticipated date of discharge: 10/02/19 Subjective Occasional episodes of atrial fibrillation with rate in 120s. The patient appears to be symptomatic during these times with presyncope. She feels lightheaded as if she is going to pass out. She denies any chest pain, shortness of breath, palpitations, claudication, orthopnea or PND. Review of Systems Review of Systems: All systems reviewed & are unremarkable except as noted in HPI & below Physical Exam Constitutional: WD/WN, vitals as above Eyes: + anicteric sclerae; normal pupil size Neck: trachea midline Respiratory: normal respiratory effort, lungs clear to auscultation Cardiovascular: Rate/Rhythm: regular rate and regular rhythm Heart Sounds: no murmur Vessels: no JVD Extremities: normal capillary refill; no calf tenderness and no pedal edema Gastrointestinal (Abdomen): Inspection/Auscultation: normal bowel sounds Percussion/Palpation: abdomen soft; abdomen nontender Musculoskeletal: no cyanosis or clubbing, extremities motor strength 5/5 Skin: no rashes, warm and dry Neurologic: moves all extremities and awake; not confused Psychiatric: A+Ox3, euthymic affect Results & Data Results & Data ([facility]) Vital Signs (Past 12 Hours) Vital Signs Temp Pulse Pulse Resp BP Pulse Ox 10/01/19 11:23 36.6 C 76 17 96/60 L 100 10/01/19 07:30 75 10/01/19 07:23 36.7 C 75 16 107/66 99 10/01/19 04:39 74 119/74 PG Care Time/CCT Total # of Minutes Spent Total Time Spent with Patient: Total time spent is greater than 50% in coordination of care (as documented) at patient's floor/unit and/or counseling patient: Coding Level of Care Code 01097 Subseq Hosp Care Lvl 3 Diagnoses Atrial fibrillation with rapid ventricular response I48.91 Palpitation R00.2 Pericardial effusion I31.3 Pre-syncope R55 CAD (coronary artery disease) I25.10 HTN (hypertension) I10 Hereditary spherocytosis D58.0 DVT prophylaxis Z29.9
[2019-10-01] MEDS: FERROUS SULFATE 325 MG TAB PO SCH (20:03)
[2019-10-01] MEDS: FOLIC ACID 1 MG TAB PO SCH (20:05)
[2019-10-01] MEDS: FLECAINIDE ACETATE 100 MG TABLET PO SCH (20:14)
[2019-10-02] MEDS: POTASSIUM CHLORIDE 10 MEQ TABCR PO SCH (08:19)
[2019-10-02] MEDS: FLECAINIDE ACETATE 100 MG TABLET PO SCH (08:19)
[2019-10-02] MEDS: ATORVASTATIN 40 MG TAB PO SCH (08:19)
[2019-10-02] MEDS: METOPROLOL TARTRATE 25 MG TAB PO SCH ×2 (08:19→20:08)
[2019-10-02] MEDS: ASPIRIN 81 MG ECTAB PO SCH (08:19)
[2019-10-02] MEDS: APIXABAN 5 MG TABLET PO SCH ×2 (08:19→20:08)
[2019-10-02 08:31] LABS: Hematocrit (blood only) 32.3 % (37-47); Hemoglobin 10.9 g/dL (12.0-16.0)
[2019-10-02 08:59] LABS: BUN Creatinine Ratio 20.4 (10-20); Calcium 8.9 mg/dl (8.5-10.1); Creatinine Clr Calc Pharmacy 48.3 ml/min; Est GFR (African American) 80.6; Est GFR (Non-African American) 69.5; Potassium 3.7 mmol/L (3.5-5.1)
[2019-10-02 09:39] LABS: Lyme Ab IgG w/WB Rflx Negative (Negative); Lyme Ab IgM w/WB Rflx Negative (Negative)
[2019-10-02] MEDS ORDERED: METOPROLOL TARTRATE 25 MG TAB PO ONE (10:00)
--- NOTE | 2019-10-02 10:33 | Cardiology Consultation ---
Date of Consultation October 02, 2019 Assessment & Plan (1) Atrial fibrillation with rapid ventricular response: She presented with atrial fibrillation, or perhaps atrial flutter, with a rapid HR. HR has been better controlled since admission but she remains in atrial flutter for the most part, often with a well controlled HR. I would recommend anticoagulation for now with rate control and cardioversion in about 1 month. She sees a tableau report developer already and has an appontment in about 3 weeks, which is good timing for this. I will stop the flecainide. The only other option would be LEXUS guided cardioversion. (2) Anticoagulant long-term use: Agree with Eliquis, current dose is correct. (3) CAD (coronary artery disease): Medical grade CAD, no indication for evaluation now. Cholesterol is good, although best prevention is with high dose statins, consider increasing to 80 mg atorvastatin, but she follows with a tableau report developer already so perhaps leave it for now. History of Present Illness Reason for Consultation: New onset AF Attending Physician: Travis Will MD History of Present Illness This is a 74-year-old woman with a history of paroxysmal atrial fibrillation but is not on an anticoagulant. She presented to the emergency department with palpitations and dizziness. She has been getting shortness of breath with exertion as well. She was unable to see her family doctor because of the current COVID-19 pandemic. She did have a follow-up appointment today with her primary hematology office at [facility]. While she was there she had an EKG done which showed a tachycardia. She was sent to the emergency department for further evaluation. She does have a history of valvular heart disease as well as coronary artery disease. She did have a cardiac catheterization that did show an LAD lesion but no intervention. She does not currently take anticoagulation because she is not been in atrial fibrillation for a long time. Echo here showed mild to moderate MR, normal LV function and severe LA enlargement. Her presenting ECG on 10/01/2019 showed AF with a HR of 132 BPM, a second ECG 3 hours later showed atrial flutter with 4:1 AV conduction. She takes Metoprolol Succinate 25 mg daily at home. Due to low BP she was treated with a slight increase in Metoprolol to 25 mg BID and started on Flecainide 100 mg BID, as well as Eliquis. Today she feels better, she does describe occasional episodes of lightheadedness but not a lot. No other cardiovascular complaints. Allergies Allergy/AdvReac Type Severity Reaction Status Date / Time chocolate flavor Allergy Severe MIGRANES Verified 09/30/19 15:14 Sulfa (Sulfonamide Allergy Severe Rash Verified 09/30/19 15:14 Antibiotics) Home Medications Home Medications Medication Instructions Recorded Confirmed Type aspirin 81 mg PO QAM 05/16/18 09/30/19 History atorvastatin 40 mg PO QAM 05/16/18 09/30/19 History metoprolol succinate 25 mg PO QAM 05/16/18 09/30/19 History cyanocobalamin (vitamin B-12) 1,000 mcg IM MONTHLY 12/24/18 09/30/19 History ferrous sulfate 325 mg PO HS 12/24/18 09/30/19 History folic acid 1 mg PO HS 12/24/18 09/30/19 History potassium chloride 10 meq PO QAM 12/24/18 09/30/19 History Patient History Medical History Anemia CAD (coronary artery disease) seen on heart cath 2018. Presented to OSH, ECG no ischemic changes and troponins negative x3. Hereditary spherocytosis s/p 2 units pRBC's at OSH. Hgb correct to 11 today. HTN (hypertension) Hyperlipidemia Jaundice Leaky heart valve PER PT Temporomandibular joint disorder CLICKS BILAT [place] AT DENTIST Surgical History History of appendectomy History of cardiac cath X 3-LAST ONE 2017 THAIS SONG NO STENTS NEEDED Hx laparoscopic cholecystectomy (12/30/18) Laparoscopic Cholecystectomy Dr. Sandhu 12/30/18 Family History Father Myocardial infarction Mother Diabetes Brother Heart disease Sister Family history of diabetes mellitus Family/Other Family history of diabetes mellitus Social History Smoking Status: Never smoker Second Hand Exposure: No; Hx Alcohol Use: Yes Alcohol type: wine Hx Substance Use: No Preferred Language: Panamanian Communication Ability: Effective Digital Product Manager Required: No Beliefs That Will Affect Care: None marital status: Current Living Situation: Spouse current occupational status: retired Other Information That Helps Us Care for You: No Feels Safe at Home: Yes Safety Concerns: Feels Safe At This Time Review of Systems Review of Systems: All systems reviewed & are unremarkable except as noted in HPI & below Physical Exam Physical Exam: Constitutional: Alert, cooperative and in no distress. HEENT: Unremarkable Neck: No jugular venous distention, carotid pulses are irregular but otherwise normal and equal bilaterally without bruits. Pulmonary: Clear to auscultation bilaterally. Cardiac: Irregular rhythm with no murmur, gallop or rub. Abdomen: Soft, nontender with normal bowel sounds. Extremities: No edema. Distal pulses intact. Neurologic: No focal findings. Gait is steady. Skin: No rash, ecchymoses or petechiae. Results & Data ([facility]) Vital Signs (Past 12 Hours) Vital Signs Temp Pulse Resp BP Pulse Ox 10/02/19 09:47 20 86/62 L 10/02/19 07:37 36.5 C 95 H 17 113/65 98 10/02/19 02:45 36.7 C 60 18 99/68 L 94 Laboratory Results Lipids 10/02/19 Range/Units 07:55 Triglycerides 92 (0-150) mg/dl Cholesterol 123 (0-200) mg/dl HDL Cholesterol 55 mg/dl Cholesterol/HDL Ratio 2 CBC 10/02/19 Range/Units 07:55 Hgb 10.9 L (12.0-16.0) g/dL Hct 32.3 L (37-47) % Comprehensive Metabolic Panel 10/02/19 Range/Units 07:55 Sodium 141 (136-145) mmol/L Potassium 3.7 (3.5-5.1) mmol/L Chloride 111 H (98-107) mmol/L Carbon Dioxide 27 (21-32) mmol/L BUN 17 (7-18) mg/dl Creatinine 0.82 (0.6-1.2) mg/dl Glucose 91 (70-99) mg/dl Calcium 8.9 (8.5-10.1) mg/dl Intake and Output 10/01/19 10/02/19 10/02/19 22:59 06:59 14:59 Intake Total 500 / 1280 200 / 1280 Balance 500 / 1280 200 / 1280 Intake: Oral 500 / 1280 200 / 1280 Other: Weight 57.4 kg Diagnostic Findings Telemetry: Atrial flutter since admission, with variable AV conduction PG Care Time/CCT Total # of Minutes Spent Total Time Spent with Patient: Total time spent is greater than 50% in coordination of care (as documented) at patient's floor/unit and/or counseling patient: Coding Level of Care Code 81953 Initial Inpt Care Lvl 2 Diagnoses Atrial fibrillation with rapid ventricular response I48.91 Anticoagulant long-term use Z79.01 CAD (coronary artery disease) I25.10
--- NOTE | 2019-10-02 19:03 | Hospitalist Progress Note ---
Date of Service October 02, 2019 Assessment & Plan (1) Atrial fibrillation with rapid ventricular response: rate now controlled, anticoagulated. follow through today, await further cardiology input, but possibly home tomorrow if rate stays controlled TSH 2.73, severe left atrial dilation likely driving a. fib ECHO - no wall motion abnormalities, small pericardial effusion, mild to moderate mitral regurgitation possibly contributing towards left atrial size Anticoagulation with Eliquis 5 mg twice daily (2) Palpitation: As above (3) Pericardial effusion: Small. Would be unable to sample. No known malignancy, [place], infection. Lyme testing negative Will need repeat echocardiogram with Dr Soler for resolution (4) Pre-syncope: Continues to have presyncopal episodes related to A. fib with rate in 120s (5) CAD (coronary artery disease): Continue ASA, atorvastatin (6) HTN (hypertension): Metoprolol as above (7) Hereditary spherocytosis: Hgb currently normal. Discussed with Dr Alvarenga on admission, no contraindication to anticoagulation. (8) DVT prophylaxis: Eliquis as above Admission and Anticipated Discharge Date Admission Date: September 30, 2019 Subjective called by nursing due to RVR not responding to metoprolol -- then due to RVR and lower-end BPs pt seen/examined - feeling oK overall - not really any palpitations - did feel before (loosely alludes that maybe she felt a little now but not nearly as intense as before?) no weak/lightheaded/dizzy - but also hadn't really gotten up much a few minutes into interview with pt, nursing came to inform me that on monitor pt had abruptly slowed into ~70's Review of Systems Review of Systems: All systems reviewed & are unremarkable except as noted in HPI & below Physical Exam Physical Exam: gen aao pleasant nad heent nc at mmm cardio irreg irreg but rate controlled no r/m/g. lungs cta bl no rr//w good effort skin no rashes no pallor or icterus Results & Data Results & Data ([facility]) Vital Signs (Past 12 Hours) Vital Signs Temp Pulse Resp BP Pulse Ox 10/02/19 15:16 97.7 F 98 H 17 110/69 96 10/02/19 11:52 97.7 F 93 H 16 91/60 L 98 10/02/19 09:47 20 86/62 L 10/02/19 07:37 97.7 F 95 H 17 113/65 98 PG Care Time/CCT Total # of Minutes Spent Total Time Spent with Patient: Total time spent is greater than 50% in coordination of care (as documented) at patient's floor/unit and/or counseling patient: Coding Level of Care Code 37629 Subseq Hosp Care Lvl 3 Diagnoses Atrial fibrillation with rapid ventricular response I48.91 Palpitation R00.2 Pericardial effusion I31.3 Pre-syncope R55 CAD (coronary artery disease) I25.10 HTN (hypertension) I10 Hereditary spherocytosis D58.0 DVT prophylaxis Z29.9
[2019-10-02] MEDS: FERROUS SULFATE 325 MG TAB PO SCH (20:09)
[2019-10-02] MEDS: FOLIC ACID 1 MG TAB PO SCH (20:09)
[2019-10-03] MEDS: METOPROLOL TARTRATE 25 MG TAB PO SCH (07:44)
[2019-10-03] MEDS: APIXABAN 5 MG TABLET PO SCH (07:44)
[2019-10-03] MEDS: ATORVASTATIN 40 MG TAB PO SCH (07:44)
[2019-10-03] MEDS: POTASSIUM CHLORIDE 10 MEQ TABCR PO SCH (07:44)
[2019-10-03] MEDS: ASPIRIN 81 MG ECTAB PO SCH (07:44)
[2019-10-03 08:28] LABS: Est GFR (Non-African American) 63.8
--- NOTE | 2019-10-03 11:49 | Cardiology Progress Note ---
Date of Service October 03, 2019 Assessment & Plan (1) Atrial fibrillation with rapid ventricular response: She presented with what appears to be predominantly atrial flutter with a rapid HR. Her HR has been better controlled since admission but she remains in atrial flutter, often with a well controlled HR. I would recommend anticoagulation for now with rate control and cardioversion in about 1 month. She sees a hr representative already and has an appointment in about 3 weeks, which is good timing for this. The only other option would be LEXUS guided cardioversion however I would prefer not to do this as she is doing well and this approach is probably safer overall. (2) Anticoagulant long-term use: Agree with [place], current dose is correct. (3) CAD (coronary artery disease): Medical grade CAD, no indication for evaluation now. Cholesterol is good, although best prevention is with high dose statins, I would consider increasing to 80 mg atorvastatin, but she follows with a hr representative already so perhaps leave it for now. Admission and Anticipated Discharge Date Admission Date: September 30, 2019 Anticipated date of discharge: 10/02/19 Subjective She is feeling well, she is having no palpitations, lightheadedness or dizziness. She is tolerating her medications well including her anticoagulant. She does not have symptoms of hypotension although her blood pressure measures low at times. Physical Exam Physical Exam: Constitutional: Alert, cooperative and in no distress. HEENT: Unremarkable Neck: No jugular venous distention, carotid pulses are irregular but otherwise normal and equal bilaterally without bruits. Pulmonary: Clear to auscultation bilaterally. Cardiac: Irregular rhythm with no murmur, gallop or rub. Abdomen: Soft, nontender with normal bowel sounds. Extremities: No edema. Distal pulses intact. Neurologic: No focal findings. Gait is steady. Skin: No rash, ecchymoses or petechiae. Results & Data ([facility]) Vital Signs (Past 12 Hours) Vital Signs Temp Pulse Pulse Resp BP BP Pulse Ox 10/03/19 11:09 36.5 C 92 H 20 101/64 97 10/03/19 08:00 104 H 10/03/19 07:13 36.8 C 112 H 20 109/67 99 10/03/19 02:47 36.6 C 79 20 98/69 L 96 Laboratory Results Comprehensive Metabolic Panel 10/03/19 Range/Units 07:12 Creatinine 0.88 (0.6-1.2) mg/dl Intake and Output 10/02/19 10/03/19 10/03/19 22:59 06:59 14:59 Intake Total 275 / 1000 250 / 1000 Balance 275 / 1000 250 / 1000 Intake: Oral 275 / 1000 250 / 1000 Other: # Unmeasured Voids 3 Weight 56.5 kg Diagnostic Findings Telemetry: Atrial fibrillation, the heart rate is quite variable but acceptable with only occasional higher heart rates. PG Care Time/CCT Total # of Minutes Spent Total Time Spent with Patient: Total time spent is greater than 50% in coordination of care (as documented) at patient's floor/unit and/or counseling patient: Coding Level of Care Code 04709 Subseq Hosp Care Lvl 2 Diagnoses Atrial fibrillation with rapid ventricular response I48.91 Anticoagulant long-term use Z79.01 CAD (coronary artery disease) I25.10
--- NOTE | 2019-10-03 13:13 | Discharge Summary ---
Date of Service October 03, 2019 Admission HPI Per Admitting Provider Ana María Plasencia is a 74-year-old female who presents to the emergency room dizzy spells when she stands up and palpitations. Associated shortness of breath and chest tightness on exertion for the past month. Is been going on for a few times a month very occasionally. She would blame it on her coffee. She was at her hematology appointment today and was noticed to have tachycardia. EKG showed atrial fibrillation and she was recommended to go to the emergency room. She has some history of paroxysmal atrial fibrillation although the exact details of this are unknown. She is under Dr. Soler for this, valvular heart disease and coronary artery disease. She has had a prior cardiac cath in 2018 for presumed unstable angina which showed nonobstructive LAD lesion which did not require stent as per the patient. She denies any orthopnea, PND, claudication. Although does note nighttime cramps Admission Exam Per Admitting Provider Constitutional: WD/WN, vitals as above Eyes: PERRL, conjunctivae normal, anicteric sclerae ENMT: external ear and nose normal, oropharynx normal Neck: trachea midline, no thyromegaly Respiratory: normal respiratory effort, lungs clear to auscultation Cardiovascular: Rate/Rhythm: + tachycardic and + irregularly irregular Heart Sounds: no murmur Vessels: no JVD Extremities: normal capillary refill; no calf tenderness and no pedal edema Gastrointestinal (Abdomen): normal bowel sounds, soft, nontender, no hepatosplenomegaly Musculoskeletal: no cyanosis or clubbing, extremities motor strength 5/5 Skin: no rashes, warm and dry Neurologic: moves all extremities and awake; not confused Psychiatric: A+Ox3, euthymic affect Lymphatic: no cervical or axillary lymphadenopathy Principal Diagnosis Atrial flutter with rapid ventricular response Discharge Exam Constitutional WD/WN, vitals as above no acute distress Eyes PERRL, conjunctivae normal, anicteric sclerae Neck trachea midline, no thyromegaly Respiratory normal respiratory effort, lungs clear to auscultation Cardiovascular Rate/Rhythm: + irregularly irregular Heart Sounds: no murmur Vessels: no JVD Gastrointestinal (Abdomen) normal bowel sounds, soft, nontender, no hepatosplenomegaly Musculoskeletal no cyanosis or clubbing, extremities motor strength 5/5 Skin no rashes, warm and dry Neurologic patellar DTR's 2+ bilat, sensation intact Psychiatric A+Ox3, euthymic affect Lymphatic no cervical or axillary lymphadenopathy Discharge Data Allergies Allergy/AdvReac Type Severity Reaction Status Date / Time chocolate flavor Allergy Severe MIGRANES Verified 09/30/19 15:14 Sulfa (Sulfonamide Allergy Severe Rash Verified 09/30/19 15:14 Antibiotics) Consultations 09/30/19 13:51 ED Decision to Admit Stat 09/30/19 14:09 Consult Health Information Management Routine 10/01/19 15:40 Consult Cardiology Routine Ordered Studies 09/29 CXR 09/30 ECHO Hospital Course (1) Atrial fibrillation with rapid ventricular response: Initially thought to be afib with RVR --> per cardiology, has been in aflutter since admission. Now rate controlled, anticoagulated. TSH 2.73, severe left atrial dilation likely driving a. fib ECHO - no wall motion abnormalities, small pericardial effusion, mild to moderate mitral regurgitation possibly contributing towards left atrial size Anticoagulation with Eliquis 5 mg twice daily and rec'd follow up with C ardiologist outpatient for cardioversion metoprolol was also increased to 25mg BID and continued at discharge (2) Palpitation: As above (3) Pericardial effusion: Small. Would be unable to sample. No known malignancy, HI, infection. Lyme testing negative Will need repeat echocardiogram with Dr Soler for resolution (4) Pre-syncope: Continued to have presyncopal episodes related to A. fib with rate in 120s but decreased frequency of lightheadedness with slowed positional changes and taking her time Improved as rates improved Anticoagulation as above with hopeful cardioversion outpatient to see if she may be converted to normal rhythm (5) CAD (coronary artery disease): Continued ASA, atorvastatin (6) HTN (hypertension): Metoprolol as above (7) Hereditary spherocytosis: Hgb normal. Discussed with Dr Alvarenga on admission, no contraindication to anticoagulation. (8) DVT prophylaxis: Eliquis as above Discharged home with family on metoprolol 25mg BID and Eliquis 5mg BID with cardiology follow up outpatient as previously scheduled. Total Time Total Time Spent Total Time Spent (In Minutes): 75 Discharge Plan Discharge Items Patient Disposition: Home - Self-Care Reason For Visit: ATRIAL FIBRILLATION W RVR Discharge Diagnosis: Atrial Flutter Condition on Discharge: Good Goals: You have been hospitalized for an acute medical problem. During your stay at [facility], we have made an effort to correct the problem that brought you to the hospital while keeping you as comfortable as possible. Medications were used to bring your condition under control and your discharge instructions will include directions for any medications you should take after leaving the hospital. Please make sure you see your Primary Care Provider as part of your follow up plan. Activity: Resume your previous activity Activity Comment: increase as tolerated Non-emergency contact: Primary Care Provider and Investment Banking Associate Call non-emergency contact if: you have any medication questions and your symptoms worsen Follow-up/Referrals: Dav Lin [Primary Care Provider] - Dl Soler [Staff Physician] - (3 weeks -- patient to already have appt scheduled at end of month) Diet: Heart Healthy Addvalerie Attending Provider Instructions: You have been hospitalized for irregular heart rhythm and evaluated by cardiology while inpatient. It has been determined that your symptoms are likely related to underlying atrial flutter and your metoprolol was increased to 25mg by mouth TWICE daily. It is determined that ideally you would undergo a cardioversion after being on anticoagulation for four weeks prior. You were started on and continued on Eliquis TWICE daily at discharge. This is to be continued for upcoming procedure. Prescriptions for both the increased metoprolol and Eliquis have been sent to your pharmacy. Please take your blood pressure at home prior to taking the metoprolol and hold if your systolic blood pressure (top number) under 100 and you have symptoms. Please follow up with your glass production machine operator as previously scheduled. Please note, you may want to discuss increasing your cholesterol medication given increased risks. Your lipid panel was done during this admission and levels were within normal limits. Please follow up with your primary care provider in the next 5-7 days to monitor your progress. Please report to the nearest emergency room with any increased shortness of breath, chest pain, or for increased palpitations or for any other symptoms that are concerning for you. It has been a pleasure being a part of the medical team providing for you while you have been in the hospital. Take care! Addtl Gasateria Attendant Provider Instructions: Medication Instructions: Your condition is typically treated with an anticoagulant. Anticoagulants will thin your blood to help prevent new clots. * You should take her medication exactly as directed. * Never skip a dose. * Never take a double dose. If you miss a dose, take it as soon as you remember. Call your Primary Care doctor if you experience any of the following: * Swelling or Pain in your leg * Sudden, continuous pain deep in a muscle * Pain that worsens when you are active or when you stand still for a long time * Chest Pain * Sudden Shortness of Breath * Rapid or pounding heart beat * Fainting * Dizziness * Cough with blood or bloody sputum * Sweating more than normal * Bruises * Heavy or uncontrolled bleeding * Blood in your urine, stool or vomit * Black or tarry stools Caring for Your Self at Home: * Avoid sitting, standing or lying down for long periods without moving your legs and feet * When traveling by car, stop to get out and move around at least once every 3 hours * On long airplane, train or bus rides, get up and move around when possible * If you can't get up, wiggle your toes and tighten your calves to keep your blood moving Follow Up: It is important for you to keep your follow up appointments with your medical provider. Pending Studies at Discharge: No Stand-Alone Forms: My [facility], Smoking Cessation Medications and DC Order Prescriptions: New metoprolol tartrate 25 mg Tablet 25 mg PO BID 30 Days Qty: 60 RF: 0 Eliquis 5 mg Tablet 5 mg PO BID 30 Days Qty: 60 RF: 0 Continued atorvastatin 40 mg tablet 40 mg PO QAM RF: 0 aspirin 81 mg Tablet,Delayed Release (Dr/Ec) 81 mg PO QAM RF: 0 potassium chloride 10 mEq Capsule, Extended Release 10 meq PO QAM RF: 0 ferrous sulfate 325 mg (65 mg iron) Tablet 325 mg PO HS RF: 0 folic acid 1 mg Tablet 1 mg PO HS RF: 0 cyanocobalamin (vitamin B-12) 1,000 mcg/mL Kit 1,000 mcg IM MONTHLY RF: 0 Discontinued metoprolol succinate 25 mg tablet extended release 24 hr 25 mg PO QAM RF: 0 Discharge Orders: Discharge Order (Routine); Ordered 10/03/19 Ordered By: Hiral Figueredo Admission Data Admit Date/Time: 09/30/19 14:32 Attending Provider: Travis Jin Admit Provider: Travis Will Primary Care Provider: Dav Lin Other Providers: Travis Will ; Mckinley Tavarez Other Interventions: Discharge Summary Assessment (RN) Last Done: 10/03/19 15:54 DC Date/Time DO NOT enter until pt leaves facility: 10/03/19 16:15 Supervising Physician Co-Signing Physician Notes Attending Attestation & Discharge Note: Pt seen/examined, chart reviewed, care plan d/w JEFFERY Figueredo. I agree w/ the ohara components of her discharge documentation. 74yo female who presented with MCKINLEY, palpitations, and lightheadedness upon standing. Upon presentation was in rapid a.flutter. Admitted to telemetry unit. Rate control strategy was employed with use of increased dose of beta aly. Eliquis 5mg BID was initiated for anticoagulation & stroke risk reduction. Rates improved with increased metoprolol dosing. Seen in consult by [facility] cardiology - will have f/u with them post-discharge. Echo showed intact LV function and small pericardial effusion. No evidence of decompensated CHF despite the rapid a. flutter. Discharge exam: gen - NAD neck - no JVD heart - RRR, s1 s2, no murmur lungs - CTA b/l abd - soft NT ND BS+ ext - no edema Travis Jin MD Coding Level of Care Code D/C Day Management >30 mins Diagnoses Atrial fibrillation with rapid ventricular response I48.91 Palpitation R00.2 Pericardial effusion I31.3 Pre-syncope R55 CAD (coronary artery disease) I25.10 HTN (hypertension) I10 Hereditary spherocytosis D58.0 DVT prophylaxis Z29.9
[2019-10-04 06:40] LABS: EAG mmol/L DNR (calc); HA1C <4.0 (<5.7)
== END 2019-10-03 16:15 | disposition home or self-care (01) | DRG 309 ==
LOC: ED 12:02 → SUATTDRO 14:32 → 2W 14:32

== ENCOUNTER 2024-11-09 09:20 | Inpatient (IN) ==
[2024-11-09] MEDS: SODIUM CHLORIDE 0.9% 1,000 ML IV STA (10:05)
--- NOTE | 2024-11-09 10:14 | XRay Report ---
SINGLE VIEW CHEST CLINICAL HISTORY: Dyspnea FINDINGS: An AP, portable, upright chest radiograph is compared to study dated 06/06/2024 and correlat ed with chest CT dated 08/25/2024. The patient is status post midline sternotomy and cardiac valve nyasia geries. The heart is enlarged noting atherosclerotic calcification of the thoracic aorta. The pulmona ry vasculature is noncongested. Chronic interstitial thickening is similar to previous. There is biba silar scarring/atelectasis. No airspace consolidation or large pleural effusion is identified. No pne umothorax is seen. The skeletal structures are osteopenic. The bony thorax is grossly intact. Cholecy stectomy clips are noted in the right upper quadrant. IMPRESSION: Cardiomegaly with no acute cardiopulmonary abnormality identified. ACT 112: Negative or not required by law. Electronically signed by: Nikunj Colin M.D. 11/09/2024 10:12 AM
[2024-11-09 10:20] LABS: Hematocrit (blood only) 26.9 % (37.0-47.0); Hemoglobin 9.3 g/dl (12.0-16.0); Immature Granulocytes # (auto) 0.02 K/uL (0.01-0.20); Immature Granulocytes % (auto) 0.4 %; Mean Corpuscular Hemoglobin 32.4 pg (25.0-34.0); Mean Corpuscular Volume 93.7 fL (80.0-100.0); Platelet Count 121 K/uL (130-400); RDW Standard Deviation 65.4 fL (36.4-46.3); Red Blood Count 2.87 M/uL (4.20-5.40); White Blood Count 5.01 K/ul (4.8-10.8)
[2024-11-09 10:40] LABS: Alanine Aminotransferase 26.0 U/L (7-52); Albumin Globulin Ratio 1.4 (0.9-2); Alkaline Phosphatase 66.0 U/L (34-104); Anion Gap 9.0 (3-11); Bilirubin,Total 8.0 mg/dl (0.2-1.0); Blood Urea Nitrogen 20.0 mg/dl (6-23); Calcium 9.0 mg/dl (8.6-10.3); Carbon Dioxide 23.0 mmol/L (21-32); Chloride 104.0 mmol/L (98-107); Creatinine Clr Calc Pharmacy 40.1 ml/min; Globulin 3.0 gm/dl (2.5-4.0); Glucose 100.0 mg/dl (70-99(Fasting)); Lipase 16.0 U/L (11-82); Potassium 3.5 mmol/L (3.5-5.1); Sodium 136.0 mmol/L (136-145); Total Protein 7.3 gm/dl (6.0-8.3)
--- NOTE | 2024-11-09 11:24 | Emergency Department Note ---
Impression & Plan Abdominal pain, Weakness, Dehydration ED Provider Note CHIEF COMPLAINT: Diarrhea HISTORY OF PRESENTING ILLNESS: Patient is an 79-year-old female presents to the emergency department today for complaints of diarrhea and abdominal pain for the past 4 days. She does have a history of hypertension, anemia, CAD, elevated LFTs, jaundice, atrial fibrillation, hyperlipidemia, long-term anticoagulant use, osteoporosis. She states that this morning the diarrhea has improved and she had 2 formed bowel movements. However over the past 3 days she has had 4-5 watery stools a day and feels that anything she eats or drinks goes right through her. She has been able to drink and eat a bland diet but does have a poor appetite. She does report a diffuse abdominal pain but that has also improved. She denies any nausea or vomiting. She denies any falls or trauma. She denies any dizziness, lightheadedness, syncope. She denies chest pain, sob, headache, fevers/chills, blood in stool or urine, any recent illness, or any recent travel. REVIEW OF SYSTEMS: See HPI for pertinent positives and pertinent negatives. ALLERGIES: See below MEDICATIONS: See below PAST MEDICAL HISTORY: See below PHYSICAL EXAM: VITAL SIGNS - Vital signs and nursing notes were reviewed. GENERAL - No acute distress. Communicates well with provider and answers questions appropriately. Does appear to have a mild jaundice color to the face and eyes. HEAD - NC/AT. EYES - PERRL with EOMI bilaterally. Sclera anicteric. Palpebral conjunctiva pink and moist with no injection noted. MOUTH/OROPHARYNX - Without perioral cyanosis. Buccal mucosa pink and moist and without leukoplakia. Tongue midline with equal elevation of palate bilaterally. No tonsillar hypertrophy, erythema, or exudates noted. NECK - Neck with FROM. Supple to palpation. No nuchal rigidity. LUNGS - Chest wall symmetric without accessory muscle use, intercostals retractions, or central cyanosis. Normal vesicular breath sounds CTA B/L. No wheezes, rales, or rhonchi appreciated. CARDIAC - RRR with S1/S2. No murmur, rubs, or gallops appreciated. ABDOMEN - Abdominal contour is without pulsations or visible masses. Negative Cullens or Braxton Turners Signs. BS normoactive all four quadrants. No tenderness to palpation appreciated in all 4 quadrants. No guarding. No rebound Tenderness. Negative Vovsings. Negative Birchleaf. No palpable masses, hepatosplenomegaly, or ascites noted. EXTREMITIES - No clubbing or peripheral cyanosis. No pretibial edema present. +3/5 radial and dorsalis pedis pulses palpated throughout. +5/5 strength noted in UE/LE bilaterally. NEUROLOGIC - Cranial nerves II through XII grossly intact. Sensory intact to light touch throughout. PSYCH - A&Ox3 and cooperates fully with examiner. Pt is very pleasant and interacts well with examiner. DIFFERENTIAL DIAGNOSIS: Differential diagnosis includes appendicitis, diverticulitis, constipation, gastroenteritis, bowel obstruction, cholecystitis, appendicitis, inflammatory bowel disease, renal colic, PUD, biliary pathology, pancreatitis, mesenteric ischemia, aortic pathology, infection, genitourinary, UTI, perforated viscus, among others. ED COURSE AND MEDICAL DECISION MAKING: HISTORY FROM INDEPENDENT HISTORIAN: History was provided by the patient and her who is at bedside and acts as secondary historian. MONITOR: Continuous athletic monitor: Order was placed for continuous athletic monitor. Patient was placed on the athletic monitor and continuous pulse ox. Patient was noted to be in normal sinus rhythm at an initial rate of 70 bpm per my interpretation. EKG: EKG was interpreted by myself as sinus rhythm with first-degree AV block with occasional PVCs at a rate of 79 bpm. INTERPRETATION OF LABS: I interpreted the labs with full lab results as below in the lab section of this note. Laboratory results pertinent to the emergent complaint are discussed in the MDM section below. The patient was advised to follow up with their PCP and/or specialist(s) for further outpatient monitoring and management of any abnormal results. INTERPRETATION OF IMAGING: Imaging studies were interpreted by myself and read by radiology as per the imaging section of this note. The patient was advised to follow up with their PCP and/or specialist(s) for further outpatient management of any non-emergent abnormal findings. CHRONIC MEDICAL/SOCIAL CONDITIONS AFFECTING CARE: No social concerns were identified as barriers to patients care. EXTERNAL RECORDS REVIEWED: I reviewed the patient's primary care visit appointment today 11/09/2024 related to the abdominal pain prior to referral here to the emergency department. I was able to obtain an accurate history medication list on the patient as the patient is a poor historian. ESCALATION OF CARE CONSIDERED: I considered admission on this patient due to the weakness, dehydration, elevated bilirubin with jaundice. CONSULTATIONS: I had a meaningful discussion about this patient with Dr. Tomas who agrees with my assessment and the treatment plan. I consulted with Dr. Horta from GI to see if he had any recommendations. He states he feels this is more related to congestive heart failure rather than GI. I consulted with Dr. Escobar about the patient. He does not feel that this is related to congestive heart failure. I consulted with Dr. Wasserman and Starr Ríos for admission and the patient was accepted. SUMMARY: I examined the patient for complaints of abdominal pain. A physical exam and history were performed. Nursing notes, EMR, and medication list were personally reviewed. CBC showed no leukocytosis. There is anemia present with a hemoglobin of 9.3 which is baseline for the patient. There is a mild thrombocytopenia with a platelet count of 121. CMP showed no emergent findings. Bilirubin was 8. Troponin was 8.1 and repeat was 5.7. BNP was 901. Bio fire showed negative results. Urinalysis showed a trace amount of protein and ketones. Urobilinogen was positive. There is a trace amount of leukocytes. No concerns for infection. Patient declined any pain medication or antiemetics here in the emergency department today. She was given 1 L normal saline. I did consult with Dr. Jones from GI, Dr. Escobar from cardiology. I consulted with Dr. Solis and Starr Ríos for admission to the hospital. The patient was accepted. DIAGNOSIS: Elevated bilirubin, weakness, dehydration, abdominal pain TREATMENT PLAN/DISCHARGE INSTRUCTIONS: Admit to hospitalist services Past Med/Surg History Problem List (Updated 11/09/24 @ 17:41 by TAWANA Delgado) Hypokalemia due to excessive gastrointestinal loss of potassium Abdominal pain (Acute) Dehydration (Acute) Weakness (Acute) MCKINLEY (dyspnea on exertion) On amiodarone therapy Cervical radiculopathy at C8 Osteoporosis Anticoagulant long-term use CAD (coronary artery disease) seen on heart cath 2018. Presented to OSH, ECG no ischemic changes and troponins negative x3. Hyperlipidemia Pericardial effusion Pre-syncope Atrial fibrillation with rapid ventricular response (Acute) Palpitation (Acute) Jaundice Elevated LFTs HTN (hypertension) CAD (coronary artery disease) Hereditary spherocytosis Medical History (Updated 11/09/24 @ 17:41 by TAWANA Delgado) Anemia Temporomandibular joint disorder 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 Hgb correct to 11 today. Surgical History Hx laparoscopic cholecystectomy (12/30/18) Laparoscopic Cholecystectomy Dr. Sandhu 12/30/18 History of cardiac cath X 3-LAST ONE 2017 THAIS NOHEMI NO STENTS NEEDED History of appendectomy Family History Father Lung cancer was a smoker Mother Diabetes Brother Heart disease Sister Family history of diabetes mellitus Family/Other Family history of diabetes mellitus Spherocytosis, hereditary granddaughter Son Spherocytosis, hereditary Denies family history of Ovarian cancer Prostate cancer Breast cancer Colorectal cancer Social History Smoking Status: Never smoker Second Hand Exposure: No; Do You Dip or Chew Tobacco: No; Hx Alcohol Use: No Hx Substance Use: No Preferred Language: Hungarian Communication Ability: Effective Visual Impairment: Limited Hearing Ability: Normal Technical Applications Specialist Required: No Beliefs That Will Affect Care: None marital status: Current Living Situation: Spouse current occupational status: retired How many Children do You have: 2 Feels Safe at Home: Yes Childhood Exposure to Second-Hand Smoke: Yes Diet: regular Diet Comment: well balanced caffeine: Yes (sometimes) during the past year weight has: remained stable Dental Care, Regularly: Yes Physical Activity Frequency: Daily Physical Activity Frequency Comment: does garden when she can, walks the dog Seatbelt Use: always Sunscreen Use: Yes Assistive Devices: Glasses Allergies Allergies Allergy/AdvReac Type Severity Reaction Status Date / Time chocolate flavor Allergy Severe MIGRANES Verified 11/09/24 08:25 Sulfa (Sulfonamide Allergy Severe Rash Verified 11/09/24 08:25 Antibiotics) Home Meds Home Medications Medication Instructions Recorded Confirmed aspirin 81 mg tablet,delayed 81 mg PO QAM 05/16/18 11/09/24 release ferrous sulfate 325 mg (65 mg 325 mg PO HS 12/24/18 11/09/24 iron) tablet folic acid 1 mg tablet 1 mg PO HS 12/24/18 11/09/24 acetaminophen 325 mg capsule 325 mg PO QID PRN Pain 01/01/22 11/09/24 mecobalamin (vitamin B12) 1,000 1,000 mcg sublingual DAILY 11/17/22 11/09/24 mcg disintegrating tablet,sublingual pyridoxine (vitamin B6) 100 mg 100 mg PO BID 11/17/22 11/09/24 tablet metoprolol tartrate 25 mg tablet 25 mg PO BID 12/24/23 11/09/24 furosemide 40 mg tablet (Lasix) 40 mg PO DAILY 06/24/24 11/09/24 ergocalciferol (vitamin D2) 1,250 1,250 mcg PO WK 11/09/24 11/09/24 mcg (50,000 unit) capsule Previous Rx's Medication Instructions Recorded potassium chloride 10 mEq 10 meq PO DAILY #90 caps 08/15/24 capsule,extended release atorvastatin 40 mg tablet 40 mg PO QAM 100 days #100 tabs 10/19/24 alendronate 70 mg tablet See Rx Instructions .Route 11/09/24 .COMPLEX #12 tabs Results & Data (ED) Vital Signs Vital Signs - 24 hr 11/09/24 09:32 11/09/24 10:09 11/09/24 10:30 Temperature 36.7 C Temperature Source Temporal Artery Scan Pulse Rate 87 78 76 Pulse Rate [Left Apical] Pulse Rhythm Respiratory Rate 18 19 Respiratory Effort / Characteristics Respiratory Depth Respiratory Pattern Blood Pressure 108/38 L 119/61 Blood Pressure [Left Arm] Blood Pressure Mean 61 76 Blood Pressure Mean [Left Arm] Pulse Oximetry 100 95 Oxygen Delivery Method Room Air Sepsis New/Unexplained Change in Mental Status No Sepsis Action Taken by Nursing No Action Required 11/09/24 11:00 11/09/24 11:01 11/09/24 11:29 Temperature Temperature Source Pulse Rate 79 79 Pulse Rate [Left Apical] 82 Pulse Rhythm Regular Respiratory Rate 24 14 23 Respiratory Effort / Characteristics Non-Labored Spontaneous Respiratory Depth Normal Respiratory Pattern Regular Blood Pressure 114/46 L Blood Pressure [Left Arm] 119/58 L Blood Pressure Mean 86 Blood Pressure Mean [Left Arm] 78 Pulse Oximetry 95 98 100 Oxygen Delivery Method Room Air Room Air Sepsis New/Unexplained Change in Mental Status Sepsis Action Taken by Nursing 11/09/24 12:30 11/09/24 14:23 11/09/24 14:54 Temperature Temperature Source Pulse Rate 78 79 81 Pulse Rate [Left Apical] Pulse Rhythm Respiratory Rate 24 24 Respiratory Effort / Characteristics Respiratory Depth Respiratory Pattern Blood Pressure 116/58 L 114/52 L Blood Pressure [Left Arm] Blood Pressure Mean 77 69 Blood Pressure Mean [Left Arm] Pulse Oximetry 100 99 Oxygen Delivery Method Room Air Room Air Sepsis New/Unexplained Change in Mental Status Sepsis Action Taken by Nursing Laboratory Data 11/09/24 09:50 11/09/24 09:50 Lab Results 11/09/24 11/09/24 11/09/24 Range/Units 09:50 11:38 12:02 WBC 5.01 (4.8-10.8) K/ul RBC 2.87 L (4.20-5.40) M/uL Hgb 9.3 L (12.0-16.0) g/dl Hct 26.9 L (37.0-47.0) % MCV 93.7 (80.0-100.0) fL MCH 32.4 (25.0-34.0) pg MCHC 34.6 (32.0-36.0) g/dL RDW Std Deviation 65.4 H (36.4-46.3) fL RDW Coeff of James 19.2 H (11.5-14.5) % Plt Count 121 L (130-400) K/uL MPV 9.7 (9.4-12.4) fL Immature Gran % (Auto) 0.4 % Neut % (Auto) 77.4 % Lymph % (Auto) 10.4 % [place] % (Auto) 11.2 % Eos % (Auto) 0.2 % Baso % (Auto) 0.4 % Neut # (Auto) 3.88 (1.40-6.50) K/uL Lymph # (Auto) 0.52 L (1.20-3.40) K/uL [place] # (Auto) 0.56 (0.11-0.59) K/uL Eos # (Auto) 0.01 (0.00-0.50) K/uL Baso # (Auto) 0.02 (0.00-0.20) K/uL Immature Gran # (Auto) 0.02 (0.01-0.20) K/uL Sodium 136 (136-145) mmol/L Potassium 3.5 (3.5-5.1) mmol/L Chloride 104 (98-107) mmol/L Carbon Dioxide 23 (21-32) mmol/L Anion Gap 9 (3-11) BUN 20 (6-23) mg/dl Creatinine 0.83 (0.6-1.2) mg/dl Est Cr Clr Drug Dosing 40.1 ml/min eGFR 70.78 BUN/Creatinine Ratio 24.1 H (10-20) Glucose 100 H (70-99(Fasting)) mg/dl Calcium 9.0 (8.6-10.3) mg/dl Magnesium 1.9 (1.7-2.4) mg/dl Total Bilirubin 8.0 H (0.2-1.0) mg/dl AST 27 (13-39) U/L ALT 26 (7-52) U/L Alkaline Phosphatase 66 (34-104) U/L Troponin I High Sens 8.1 5.7 (0-14) pg/ml B-Natriuretic Peptide (0-100) pg/ml Total Protein 7.3 (6.0-8.3) gm/dl Albumin 4.3 (3.4-5.0) gm/dl Globulin 3.0 (2.5-4.0) gm/dl Albumin/Globulin Ratio 1.4 (0.9-2) Lipase 16 (11-82) U/L Urine Color Yellow Urine Appearance Clear (Clear) Urine pH 5.5 (4.5-7.5) Ur Specific [place] 1.008 (1.000-1.030) Urine Protein Trace H (Negative) Urine Glucose (UA) Negative (Negative) Urine Ketones Trace H (Negative) Urine Blood Negative (Negative) Urine Nitrite Negative (Negative) Urine Bilirubin Negative (Negative) Urine Urobilinogen Positive H (Negative) Ur Leukocyte Esterase Trace H (Negative) Urine WBC (Auto) 0-5 (0-5) /hpf Urine RBC (Auto) 0-2 (0-2) /hpf U Hyaline Cast (Auto) 0-2 (0-2) /lpf U Epithel Cells (Auto) 0-2 (0-2) /hpf Urine Bacteria (Auto) None Seen (None Seen) Urine Comment Adenovirus (PCR) Not Detected (NotDetected) B. pertussis DNA (PCR) Not Detected (NotDetected) B.parapertussis DNA PCR Not Detected (NotDetected) C. pneumoniae DNA (PCR) Not Detected (NotDetected) Coronavirus OC43 (PCR) Not Detected (NotDetected) Coronavirus HKU1 (PCR) Not Detected (NotDetected) Coronavirus 229E (PCR) Not Detected (NotDetected) SARS-CoV-2 (PCR) Not Detected (NotDetected) Coronavirus NL63 (PCR) Not Detected (NotDetected) Human Metapneumovir PCR Not Detected (NotDetected) Influenza Type A (PCR) Not Detected (NotDetected) Influenza Type B (PCR) Not Detected (NotDetected) M. pneumoniae (PCR) Not Detected (NotDetected) Parainfluenza 1 (PCR) Not Detected (NotDetected) Parainfluenza 2 (PCR) Not Detected (NotDetected) Parainfluenza 3 (PCR) Not Detected (NotDetected) Parainfluenza 4 (PCR) Not Detected (NotDetected) RSV (PCR) Not Detected (NotDetected) Entero/Rhino (PCR) Not Detected (NotDetected) 11/09/24 Range/Units 14:54 WBC (4.8-10.8) K/ul RBC (4.20-5.40) M/uL Hgb (12.0-16.0) g/dl Hct (37.0-47.0) % MCV (80.0-100.0) fL MCH (25.0-34.0) pg MCHC (32.0-36.0) g/dL RDW Std Deviation (36.4-46.3) fL RDW Coeff of James (11.5-14.5) % Plt Count (130-400) K/uL MPV (9.4-12.4) fL Immature Gran % (Auto) % Neut % (Auto) % Lymph % (Auto) % [place] % (Auto) % Eos % (Auto) % Baso % (Auto) % Neut # (Auto) (1.40-6.50) K/uL Lymph # (Auto) (1.20-3.40) K/uL [place] # (Auto) (0.11-0.59) K/uL Eos # (Auto) (0.00-0.50) K/uL Baso # (Auto) (0.00-0.20) K/uL Immature Gran # (Auto) (0.01-0.20) K/uL Sodium (136-145) mmol/L Potassium (3.5-5.1) mmol/L Chloride (98-107) mmol/L Carbon Dioxide (21-32) mmol/L Anion Gap (3-11) BUN (6-23) mg/dl Creatinine (0.6-1.2) mg/dl Est Cr Clr Drug Dosing ml/min eGFR BUN/Creatinine Ratio (10-20) Glucose (70-99(Fasting)) mg/dl Calcium (8.6-10.3) mg/dl Magnesium (1.7-2.4) mg/dl Total Bilirubin (0.2-1.0) mg/dl AST (13-39) U/L ALT (7-52) U/L Alkaline Phosphatase (34-104) U/L Troponin I High Sens (0-14) pg/ml B-Natriuretic Peptide 901 H (0-100) pg/ml Total Protein (6.0-8.3) gm/dl Albumin (3.4-5.0) gm/dl Globulin (2.5-4.0) gm/dl Albumin/Globulin Ratio (0.9-2) Lipase (11-82) U/L Urine Color Urine Appearance (Clear) Urine pH (4.5-7.5) Ur Specific [place] (1.000-1.030) Urine Protein (Negative) Urine Glucose (UA) (Negative) Urine Ketones (Negative) Urine Blood (Negative) Urine Nitrite (Negative) Urine Bilirubin (Negative) Urine Urobilinogen (Negative) Ur Leukocyte Esterase (Negative) Urine WBC (Auto) (0-5) /hpf Urine RBC (Auto) (0-2) /hpf U Hyaline Cast (Auto) (0-2) /lpf U Epithel Cells (Auto) (0-2) /hpf Urine Bacteria (Auto) (None Seen) Urine Comment Adenovirus (PCR) (NotDetected) B. pertussis DNA (PCR) (NotDetected) B.parapertussis DNA PCR (NotDetected) C. pneumoniae DNA (PCR) (NotDetected) Coronavirus OC43 (PCR) (NotDetected) Coronavirus HKU1 (PCR) (NotDetected) Coronavirus 229E (PCR) (NotDetected) SARS-CoV-2 (PCR) (NotDetected) Coronavirus NL63 (PCR) (NotDetected) Human Metapneumovir PCR (NotDetected) Influenza Type A (PCR) (NotDetected) Influenza Type B (PCR) (NotDetected) M. pneumoniae (PCR) (NotDetected) Parainfluenza 1 (PCR) (NotDetected) Parainfluenza 2 (PCR) (NotDetected) Parainfluenza 3 (PCR) (NotDetected) Parainfluenza 4 (PCR) (NotDetected) RSV (PCR) (NotDetected) Entero/Rhino (PCR) (NotDetected) Administered Medications Lactated Ringer's (Lr) 1,000 mls @ 80 mls/hr IV .[id number] BELLA Stop: 11/10/24 16:59 Last Admin: 11/09/24 16:42 Dose: 80 mls/hr Documented By: MANJINDER Potassium Chloride (K Jhon / Wtr) 10 meq in 100 mls @ 100 mls/hr IV Q1H BELLA Stop: 11/09/24 18:59 Last Admin: 11/09/24 16:42 Dose: 100 mls/hr Documented By: MANJINDER Discontinued Medications Acetaminophen (Acetaminophen 325 Mg Tab) 650 mg PO NOW STA Stop: 11/09/24 16:04 Last Admin: 11/09/24 16:42 Dose: 650 mg Documented By: MANJINEDR Sodium Chloride (Nss) 1,000 mls @ 999 mls/hr IV .Q1H1M STA Stop: 11/09/24 10:55 Last Infusion: 11/09/24 11:03 Dose: Infused Documented By: Admin: 11/09/24 10:05 Dose: 999 mls/hr Documented By: LUPE Ioversol (Optiray 320 100ml) 94 ml IV ONCE ONE Stop: 11/09/24 11:48 Last Admin: 11/09/24 11:47 Dose: 94 ml Documented By: KRISTAL Imaging Data Radiologist's Impression: Abdomen/Pelvis CT 11/09/24 09:[address] WITH IV CONTRAST CT DOSE: 372.37 mGy.cm HISTORY: Acute generalized abdominal pain with diarrhea and weakness abd pain TECHNIQUE: Multiaxial CT images of the abdomen and pelvis were performed following the IV administration of 94 cc of Optiray, A dose lowering technique was utilized adhering to the principles of ALARA. COMPARISON STUDY: Chest CT 08/25/2024 FINDINGS: Cardiomegaly with median sternotomy. Aortic and mitral prosthetic valves with coronary artery calcifications. Trace pleural effusions. Not appearing calcified granuloma of the basal right lower lobe. Mild intralobular septal thickening. No pneumatosis or pneumoperitoneum. The spleen is enlarged measuring up to 17 cm in length. Unremarkable pancreas and adrenal glands. Cholecystectomy with likely postoperative common bile duct dilation measuring 9 mm. Moderate periportal edema. Patency of the hepatic and portal veins. Subcentimeter probable cyst of the liver on image 51 series 3. No hydronephrosis. Subcentimeter hypodense lesion of the right kidney is too small to characterize. Partial distention of the urinary bladder. Unremarkable uterus. Atherosclerosis of the aorta and branch vessels. Unchanged water attenuating ovoid structure within the right retrocrural space on image 61 series 3. Subcentimeter retroperitoneal lymph nodes are present. Mild nonspecific distal esophageal wall thickening. Small volume of abdominopelvic ascites. Internal hemorrhoids are noted with varicosities in the perirectal tissues. Extensive colonic diverticulosis without definite CT evidence of acute diverticulitis. Scattered large and small bowel air-fluid levels. Several loops of small bowel demonstrates circumferential wall thickening. The appendix is not clearly seen. Right adnexal calcified foci are present. Lymph nodes in the right lower quadrant mesentery measuring up to 8 mm. Mild generalized body wall edema. Tarlov cysts of the sacrum. IMPRESSION: 1. Cardiomegaly with volume overload consisting of mild interstitial pulmonary edema, trace pleural effusions, small volume abdominal pelvic ascites with anasarca. 2. Colonic diverticulosis without acute diverticulitis. 3. Scattered large and small bowel air-fluid levels with several loops of small bowel demonstrating circumferential wall thickening. Findings may represent a nonspecific enteritis/diarrhea illness. 4. Moderate to marked splenomegaly. 5. Additional findings as above. ACT 112: Negative or not required by law. The above report was generated using voice recognition software. It may contain grammatical, syntax or spelling errors. Electronically signed by: Juan Jose Griffith M.D. 11/09/2024 12:18 PM Chest X-Ray 11/09/24 09:55 SINGLE VIEW CHEST CLINICAL HISTORY: Dyspnea FINDINGS: An AP, portable, upright chest radiograph is compared to study dated 06/06/2024 and correlated with chest CT dated 08/25/2024. The patient is status post midline sternotomy and cardiac valve surgeries. The heart is enlarged noting atherosclerotic calcification of the thoracic aorta. The pulmonary vasculature is noncongested. Chronic interstitial thickening is similar to previous. There is bibasilar scarring/atelectasis. No airspace consolidation or large pleural effusion is identified. No pneumothorax is seen. The skeletal structures are osteopenic. The bony thorax is grossly intact. Cholecystectomy clips are noted in the right upper quadrant. IMPRESSION: Cardiomegaly with no acute cardiopulmonary abnormality identified. ACT 112: Negative or not required by law. Electronically signed by: Nikunj Colin M.D. 11/09/2024 10:12 AM Discharge Plan Visit Data Chief Complaint: Referred by Doctor Stated Complaint: REF BY DOC ED Provider: Kong Tomas ED Midlevel Provider: Dorcas Martinez Discharge Problem: Abdominal pain, Weakness, Dehydration Patient Disposition: Admitted As Inpatient Condition: Good Discharge Instructions Interventions: ED Discharge Assessment Last Done: 11/09/24 16:20 Discharge Problem: Abdominal pain Qualifiers: Abdominal location: generalized Qualified Code(s): R10.84 - Generalized abdominal pain
[2024-11-09 11:43] LABS: Chlamydia pneumoniae PCR Not Detected (NotDetected); Coronavirus 229E PCR Not Detected (NotDetected); Coronavirus CoV-2 (COVID19)PCR Not Detected (NotDetected); Coronavirus HKU1 PCR Not Detected (NotDetected); Coronavirus NL63 PCR Not Detected (NotDetected); Coronavirus OC43PCR Not Detected (NotDetected); Human Metapneumovirus PCR Not Detected (NotDetected); Parainfluenza Virus 1 PCR Not Detected (NotDetected); Parainfluenza Virus 2 PCR Not Detected (NotDetected); Parainfluenza Virus 3 PCR Not Detected (NotDetected); Parainfluenza Virus 4 PCR Not Detected (NotDetected); Respiratory Syncytial VirusPCR Not Detected (NotDetected); Rhinovirus/Enterovirus PCR Not Detected (NotDetected)
[2024-11-09] MEDS: OPTIRAY 320 100ml IV ONE (11:47)
[2024-11-09 11:58] LABS: Appearance Urine Clear (Clear); Bacteria Urine Automated None Seen (None Seen); Cast Urine Automated 0-2 /lpf (0-2); Epithelial Cell Urine Auto 0-2 /hpf (0-2); Glucose Urine UA Negative (Negative); RBC Urine Automated 0-2 /hpf (0-2); WBC Urine Automated 0-5 /hpf (0-5)
--- NOTE | 2024-11-09 12:20 | CT Scan Report ---
ABDOMEN AND PELVIS CT WITH IV CONTRAST CT DOSE: 372.37 mGy.cm HISTORY: Acute generalized abdominal pain with diarrhea and weakness abd pain TECHNIQUE: Multiaxial CT images of the abdomen and pelvis were performed following the IV administrat ion of 94 cc of Optiray, A dose lowering technique was utilized adhering to the principles of ALARA. COMPARISON STUDY: Chest CT 08/25/2024 FINDINGS: Cardiomegaly with median sternotomy. Aortic and mitral prosthetic valves with coronary domingo ry calcifications. Trace pleural effusions. Not appearing calcified granuloma of the basal right lowe r lobe. Mild intralobular septal thickening. No pneumatosis or pneumoperitoneum. The spleen is enlarged measuring up to 17 cm in length. Unremarkable pancreas and adrenal glands. Cho lecystectomy with likely postoperative common bile duct dilation measuring 9 mm. Moderate periportal edema. Patency of the hepatic and portal veins. Subcentimeter probable cyst of the liver on image 51 series 3. No hydronephrosis. Subcentimeter hypodense lesion of the right kidney is too small to gonzález cterize. Partial distention of the urinary bladder. Unremarkable uterus. Atherosclerosis of the aorta and branch vessels. Unchanged water attenuating ovoid structure within the right retrocrural space o n image 61 series 3. Subcentimeter retroperitoneal lymph nodes are present. Mild nonspecific distal esophageal wall thickening. Small volume of abdominopelvic ascites. Internal hemorrhoids are noted with varicosities in the perirectal tissues. Extensive colonic diverticulosis w ithout definite CT evidence of acute diverticulitis. Scattered large and small bowel air-fluid levels . Several loops of small bowel demonstrates circumferential wall thickening. The appendix is not mani rly seen. Right adnexal calcified foci are present. Lymph nodes in the right lower quadrant mesentery measuring up to 8 mm. Mild generalized body wall edema. Tarlov cysts of the sacrum. IMPRESSION: 1. Cardiomegaly with volume overload consisting of mild interstitial pulmonary edema, trace pleural e ffusions, small volume abdominal pelvic ascites with anasarca. 2. Colonic diverticulosis without acute diverticulitis. 3. Scattered large and small bowel air-fluid levels with several loops of small bowel demonstrating c ircumferential wall thickening. Findings may represent a nonspecific enteritis/diarrhea illness. 4. Moderate to marked splenomegaly. 5. Additional findings as above. ACT 112: Negative or not required by law. The above report was generated using voice recognition software. It may contain grammatical, syntax o r spelling errors. Electronically signed by: Juan Jose Griffith M.D. 11/09/2024 12:18 PM
--- NOTE | 2024-11-09 12:55 | Electrocardiogram Report ---
Test Reason : Blood Pressure : */* mmHG Vent. Rate : 79 BPM Atrial Rate : 79 BPM P-R Int : 336 ms QRS Dur : 82 ms QT Int : 390 ms P-R-T Axes : * -27 116 degrees QTcB Int : 447 ms Sinus rhythm with 1st degree A-V block with occasional Premature ventricular complexes Nonspecific ST and T wave abnormality Abnormal ECG When compared with ECG of 29-Jul-2024 14:56, QRS axis Shifted left T wave inversion now evident in Lateral leads Confirmed by Hang Escobar ([id number]) on 11/09/2024 12:54:52 PM Referred By: Confirmed By: Hang Escobar
--- NOTE | 2024-11-09 13:08 | Emergency Department Note ---
ED Visit Note I was consulted by the Advanced Practice Provider. I personally made or approved the management plan for the patient. I performed a substantive portion of the visit. This includes the aspects of: MDM. .
--- NOTE | 2024-11-09 15:36 | History & Physical Report ---
Date of Service November 09, 2024 Assessment & Plan (1) Weakness: (2) Dehydration: (3) Abdominal pain: (4) Hypokalemia due to excessive gastrointestinal loss of potassium: Plan Patient is an 79-year-old female with past medical history of hypertension, HFpEF, CAD, anemia, A-fib no longer on Eliquis, HLD, mitral and tricuspid valve repairs, hereditary spherocytosis. patient presented after referral by her PCP for 4 days of diarrhea and diffuse abdominal pain as well as weakness. She endorses dyspnea on exertion when going up her stairs. Workup in the ED revealed nonspecific enteritis on AP CT as well as mild volume overload with a BNP of 901. Given patient extremely dry, will admit for IV fluids and PT OT evals for weakness. #Weakness/acute dehydration/abd pain - with watery diarrhea and diffuse abdominal pain x 4 days. Hold diuretics promote oral hydration - Tylenol and Zofran prn - PT/OT ordered - stool cultures ordered - trend CBC and LFTs #Hypokalemia K+ 3.5, renal function stable. Likely 2/2 poor p.o. intake and continue diuretics. Holding diuretics 3 bags K rider ordered on admission Magnesium ordered, 1.9 Trend BMP and magnesium #HTN/CAD/HLD/MCKINLEY- follows with cardiology, Dr. Flores. Most recent echo 03/01 revealed EF 45 to 50%. APCT revealed mild volume overload with mild pulmonary edema, trace pleural effusions, and ascites. BNP 901, troponin 8.1 -> 5.7 Patient with extremely dry mucous membranes, no edema. Low concern for acute exacerbation of CHF on admission. - defer repeat echo as most recent < 1 year ago Holding Lasix with acute dehydration above Strict I's and O's Daily weights - continue aspirin, statin, and metoprolol - noted to have MCKINLEY chronically, being worked up by cardiology in out patient setting - being considered for stress echo VTE ppx: SCDs, low risk, plt count 121, obs status - if prolonged stay consider chemical ppx Dispo: med/surg Admission and Anticipated Discharge Date Admission Date: 11/09/24 History of Present Illness Chief Complaint: referred by doctor Primary Care Provider: Rusty Sheikh DO Patient is an 79-year-old female with past medical history of hypertension, HFpEF, CAD, anemia, A-fib no longer on Eliquis, HLD, mitral and tricuspid valve repairs, hereditary spherocytosis. patient presented after referral by her PCP for 4 days of diarrhea and diffuse abdominal pain as well as weakness. She endorses dyspnea on exertion when going up her stairs. Workup in the ED revealed nonspecific enteritis on AP CT as well as mild volume overload with a BNP of 901. Given patient extremely dry we will admit for IV fluids, and PT OT evals for weakness. Patient seen at bedside. She stated she has had several days of watery diarrhea however was better today and she only had 1 episode of more formed stools this morning. She denies any hematochezia. She also has had diffuse abdominal pain that comes and goes. Denies any nausea or vomiting. Patient has felt extremely weak over the past few days and like her legs will not hold her up, she endorses dyspnea on exertion and heart palpitations when going up her stairs. She has had an extremely poor appetite and has been unable to tolerate much p.o. intake while still taking Lasix 40 mg daily. She has tried to drink drinks with electrolytes in them. She denies any fevers, chills, chest pain, lower extremity edema. She took her morning medications today including Lasix. She wishes to be DNR/DNI. Hand off from ER provider stated that she spoke with GI who believes this may be more related to CHF. Allergies Allergy/AdvReac Type Severity Reaction Status Date / Time chocolate flavor Allergy Severe MIGRANES Verified 11/09/24 08:25 Sulfa (Sulfonamide Allergy Severe Rash Verified 11/09/24 08:25 Antibiotics) Home Medications Medication Instructions Recorded Confirmed Type aspirin 81 mg tablet,delayed 81 mg PO QAM 05/16/18 11/09/24 History release ferrous sulfate 325 mg (65 mg 325 mg PO HS 12/24/18 11/09/24 History iron) tablet folic acid 1 mg tablet 1 mg PO HS 12/24/18 11/09/24 History acetaminophen 325 mg capsule 325 mg PO QID PRN Pain 01/01/22 11/09/24 History mecobalamin (vitamin B12) 1,000 1,000 mcg sublingual DAILY 11/17/22 11/09/24 History mcg disintegrating tablet,sublingual pyridoxine (vitamin B6) 100 mg 100 mg PO BID 11/17/22 11/09/24 History tablet metoprolol tartrate 25 mg tablet 25 mg PO BID 12/24/23 11/09/24 History furosemide 40 mg tablet (Lasix) 40 mg PO DAILY 06/24/24 11/09/24 History potassium chloride 10 mEq 10 meq PO DAILY #90 caps 08/15/24 11/09/24 Rx capsule,extended release atorvastatin 40 mg tablet 40 mg PO QAM 100 days #100 tabs 10/19/24 11/09/24 Rx alendronate 70 mg tablet See Rx Instructions .Route 11/09/24 11/09/24 Rx .COMPLEX #12 tabs ergocalciferol (vitamin D2) 1,250 1,250 mcg PO WK 11/09/24 11/09/24 History mcg (50,000 unit) capsule Past Med/Surg History Problem List Hypokalemia due to excessive gastrointestinal loss of potassium Abdominal pain (Acute) Dehydration (Acute) Weakness (Acute) MCKINLEY (dyspnea on exertion) On amiodarone therapy Cervical radiculopathy at C8 Osteoporosis Anticoagulant long-term use CAD (coronary artery disease) seen on heart cath 2018. Presented to OSH, ECG no ischemic changes and troponins negative x3. Hyperlipidemia Pericardial effusion Pre-syncope Atrial fibrillation with rapid ventricular response (Acute) Palpitation (Acute) Jaundice Elevated LFTs HTN (hypertension) CAD (coronary artery disease) Hereditary spherocytosis Medical History Anemia Temporomandibular joint disorder 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 Hgb correct to 11 today. Surgical History Hx laparoscopic cholecystectomy (12/30/18) Laparoscopic Cholecystectomy Dr. Sandhu 12/30/18 History of cardiac cath X 3-LAST ONE 2017 THAIS SONG NO STENTS NEEDED History of appendectomy Family History Father Lung cancer was a smoker Mother Diabetes Brother Heart disease Sister Family history of diabetes mellitus Family/Other Family history of diabetes mellitus Spherocytosis, hereditary granddaughter Son Spherocytosis, hereditary Denies family history of Ovarian cancer Prostate cancer Breast cancer Colorectal cancer Social History Smoking Status: Never smoker Second Hand Exposure: No; Do You Dip or Chew Tobacco: No; Hx Alcohol Use: Yes Alcohol type: wine Alcohol Intake Frequency: Monthly or Less Hx Substance Use: No Preferred Language: Croatian Communication Ability: Effective Visual Impairment: Limited Hearing Ability: Normal Computer Forensics Technician Required: No Beliefs That Will Affect Care: None marital status: Current Living Situation: Spouse current occupational status: retired How many Children do You have: 2 Other Information That Helps Us Care for You: No Feels Safe at Home: Yes Safety Concerns: Feels Safe At This Time Childhood Exposure to Second-Hand Smoke: Yes Diet: regular Diet Comment: well balanced caffeine: Yes (sometimes) during the past year weight has: remained stable Dental Care, Regularly: Yes Physical Activity Frequency: Daily Physical Activity Frequency Comment: does garden when she can, walks the dog Seatbelt Use: always Sunscreen Use: Yes Assistive Devices: None Review of Systems Review of Systems: see HPI Physical Exam Constitutional: WD/WN, vitals as above Neck: trachea midline, no thyromegaly Respiratory: normal respiratory effort, lungs clear to auscultation Cardiovascular: RRR, no murmur, no edema Results & Data Results & Data Vital Signs (Past 12 Hours) Vital Signs Temp Pulse Pulse Resp BP BP Pulse Ox 11/09/24 14:54 81 11/09/24 14:23 79 24 114/52 L 99 11/09/24 12:30 78 24 116/58 L 100 11/09/24 11:29 82 23 119/58 L 100 11/09/24 11:01 79 14 98 11/09/24 11:00 79 24 114/46 L 95 11/09/24 10:30 76 19 119/61 95 11/09/24 10:09 78 11/09/24 09:32 36.7 C 87 18 108/38 L 100 O2 Del Method 11/09/24 14:54 11/09/24 14:23 Room Air 11/09/24 12:30 Room Air 11/09/24 11:29 Room Air 11/09/24 11:01 Room Air 11/09/24 11:00 11/09/24 10:30 11/09/24 10:09 11/09/24 09:32 Room Air Laboratory Results reveiwed cbc, cmp, bnp, UA, biofire Diagnostic Findings reviewed CXR and AP CT Medications Administered ED - 1 L NSS bolus ECG Additional Comments: ordered Code Status & VTE Plan Code Status dnr/dni VTE Prophylaxis Plan VTE Prophylaxis will be ordered: Yes Supervising Physician Co-Signing Physician Notes During face to face encounter, I obtained a history and physical examination, discussed plan of care with patient and answered any questions. I discussed plan of care with JOANN Ríos. I reviewed above note and agree with it except for the following: Patient will be admitted for likely gastroenteritis. Will continue IVF and check a stool biofire PG Care Time/CCT Total # of Minutes Spent Total Time Spent with Patient: Total time spent is greater than 50% in coordination of care (as documented) at patient's floor/unit and/or counseling patient: Coding Level of Care Code 69217 INT INP/OBS CARE 3/75MIN Diagnoses Weakness R53.1 Dehydration E86.0 Abdominal pain R10.9 Hypokalemia due to excessive gastrointestinal loss of potassium E87.6
[2024-11-09 16:27] LABS: Magnesium 1.9 mg/dl (1.7-2.4)
[2024-11-09] MEDS ORDERED: MELATONIN 3 MG TAB PO PRN (16:33)
[2024-11-09] MEDS ORDERED: ONDANSETRON INJ 2 MG/ML 2 ML VIAL IV PRN (16:33)
[2024-11-09] MEDS: ACETAMINOPHEN 325 MG TAB PO STA (16:42)
[2024-11-09] MEDS: POTASSIUM CHLORIDE / WTR 10 MEQ/100 ML PLCT IV SCH (16:42)
[2024-11-09] MEDS: LACTATED RINGER'S 1,000 ML IV SCH (16:42)
[2024-11-09] MEDS: METOPROLOL TARTRATE 25 MG TAB PO SCH (20:32)
[2024-11-10 05:55] LABS: Cdiff Toxin B Gene (2yr or >) Negative Cdiff Gene (Neg)
[2024-11-10 06:29] LABS: Adenovirus F 40/41 PCR Not Detected (NotDetected); Campylobacter PCR Not Detected (NotDetected); Enteroaggregative E.coli(EAEC) Not Detected (NotDetected); Shiga-like Toxin E.coli (STEC) Not Detected (NotDetected); Vibrio species PCR Not Detected (NotDetected)
[2024-11-10 07:42] LABS: Hematocrit (blood only) 23.5 % (37.0-47.0); Hemoglobin 8.0 g/dl (12.0-16.0); Immature Granulocytes # (auto) 0.02 K/uL (0.01-0.20); Immature Granulocytes % (auto) 0.5 %; Mean Corpuscular Hemoglobin 32.8 pg (25.0-34.0); Mean Corpuscular Volume 96.3 fL (80.0-100.0); Platelet Count 115 K/uL (130-400); RDW Standard Deviation 67.8 fL (36.4-46.3); Red Blood Count 2.44 M/uL (4.20-5.40); White Blood Count 3.71 K/ul (4.8-10.8)
[2024-11-10 07:57] LABS: Alanine Aminotransferase 21.0 U/L (7-52); Albumin Globulin Ratio 1.4 (0.9-2); Alkaline Phosphatase 58.0 U/L (34-104); Anion Gap 8.0 (3-11); Bilirubin,Total 5.7 mg/dl (0.2-1.0); Blood Urea Nitrogen 17.0 mg/dl (6-23); Calcium 8.2 mg/dl (8.6-10.3); Carbon Dioxide 22.0 mmol/L (21-32); Chloride 110.0 mmol/L (98-107); Creatinine Clr Calc Pharmacy 46.2 ml/min; Globulin 2.6 gm/dl (2.5-4.0); Glucose 106.0 mg/dl (70-99(Fasting)); Magnesium 2.0 mg/dl (1.7-2.4); Potassium 3.7 mmol/L (3.5-5.1); Sodium 140.0 mmol/L (136-145); Total Protein 6.2 gm/dl (6.0-8.3)
[2024-11-10 08:11] LABS: Iron 27.0 mcg/dl (35-150); Total Iron Binding Cap Calc 174.0 mcg/dl (250-450); Transferrin 124.0 mg/dl (200-360); Transferrin (FE) Percent Satur 16.0 % (15-50)
[2024-11-10 08:31] LABS: Ferritin 310.5 ng/ml (8-388)
[2024-11-10] MEDS: ASPIRIN 81 MG ECTAB PO SCH (08:56)
[2024-11-10] MEDS: ATORVASTATIN 40 MG TAB PO SCH (08:56)
--- NOTE | 2024-11-10 23:01 | Hospitalist Progress Note ---
Date of Service November 10, 2024 Assessment & Plan (1) Weakness: (2) Dehydration: (3) Abdominal pain: (4) Hypokalemia due to excessive gastrointestinal loss of potassium: Plan Patient is an 79-year-old female with past medical history of hypertension, HFpEF, CAD, anemia, A-fib no longer on Eliquis, HLD, mitral and tricuspid valve repairs, hereditary spherocytosis. patient presented after referral by her PCP for 4 days of diarrhea and diffuse abdominal pain as well as weakness. She endorses dyspnea on exertion when going up her stairs. Workup in the ED revealed nonspecific enteritis on AP CT as well as mild volume overload with a BNP of 901. Given patient extremely dry, will admit for IV fluids and PT OT evals for weakness. #Weakness/acute dehydration/abd pain - with watery diarrhea and diffuse abdominal pain x [address] revealed nonspecific enteritis/diarrheal illness with moderate splenomegaly. LFTs WNL, no leukocytosis, BioFire negative, afebrile. Patient with extremely dry mucous membranes on diuretics. With trace ketones in urine. stool cultures positive for EPEC -will continue supportive care. will hold loperamide. no red flags #herediatry spherocytosis Patient with anemia of chronic disease and iron def. anemia. will monitor and recheck hemoglobin #Hypokalemia K+ 3.5, renal function stable. Likely 2/2 poor p.o. intake and continue diuretics. Holding diuretics 3 bags K rider ordered on admission Magnesium ordered, 1.9 Trend BMP and magnesium #HTN/CAD/HLD/MCKINLEY- follows with cardiology, Dr. Flores. Most recent echo 03/01 revealed EF 45 to 50%. APCT revealed mild volume overload with mild pulmonary edema, trace pleural effusions, and ascites. BNP 901, troponin 8.1 -> 5.7 Patient with extremely dry mucous membranes, no edema. Low concern for acute exacerbation of CHF on admission. - defer repeat echo as most recent < 1 year ago Holding Lasix with acute dehydration above Strict I's and O's Daily weights - continue aspirin, statin, and metoprolol - noted to have MCKINLEY chronically, being worked up by cardiology in out patient setting - being considered for stress echo VTE ppx: SCDs, low risk, plt count 121, obs status - if prolonged stay consider chemical ppx Dispo: med/surg Admission and Anticipated Discharge Date Admission Date: November 10, 2024 Subjective Patient reports no new symptoms. Patient continues to have diarrhea. Physical Exam Constitutional: WD/WN, vitals as above Neck: trachea midline, no thyromegaly Respiratory: normal respiratory effort, lungs clear to auscultation Cardiovascular: RRR, no murmur, no edema Results & Data Results & Data Vital Signs (Past 12 Hours) Vital Signs Temp Pulse Resp BP Pulse Ox O2 Del Method 11/10/24 20:31 83 101/59 L 11/10/24 15:43 36.5 C 92 H 18 97/59 L 95 Room Air PG Care Time/CCT Total # of Minutes Spent Total Time Spent with Patient: Total time spent is greater than 50% in coordination of care (as documented) at patient's floor/unit and/or counseling patient: Coding Level of Care Code 13848 SUB INP/OBS CARE 3/50MIN Diagnoses Weakness R53.1 Dehydration E86.0 Abdominal pain R10.84 Abdominal location: generalized Hypokalemia due to excessive gastrointestinal loss of potassium E87.6 (3) Abdominal pain Abdominal location: generalized Qualified Code(s): R10.84 - Generalized abdominal pain
[2024-11-10 23:32] LABS: Hematocrit (blood only) 21.8 % (37.0-47.0); Hemoglobin 7.4 g/dl (12.0-16.0)
[2024-11-11] MEDS ORDERED: SODIUM CHLORIDE 0.9% 100 ML IV PRN (00:03)
[2024-11-11 07:04] LABS: Hematocrit (blood only) 23.3 % (37.0-47.0); Hemoglobin 7.8 g/dl (12.0-16.0); Mean Corpuscular Hemoglobin 32.0 pg (25.0-34.0); Mean Corpuscular Volume 95.5 fL (80.0-100.0); Platelet Count 126 K/uL (130-400); RDW Standard Deviation 65.7 fL (36.4-46.3); Red Blood Count 2.44 M/uL (4.20-5.40); White Blood Count 3.37 K/ul (4.8-10.8)
[2024-11-11 07:21] LABS: Anion Gap 6.0 (3-11); Blood Urea Nitrogen 20.0 mg/dl (6-23); Calcium 8.5 mg/dl (8.6-10.3); Carbon Dioxide 22.0 mmol/L (21-32); Chloride 109.0 mmol/L (98-107); Creatinine Clr Calc Pharmacy 43.2 ml/min; Glucose 102.0 mg/dl (70-99(Fasting)); Potassium 3.5 mmol/L (3.5-5.1); Sodium 137.0 mmol/L (136-145)
[2024-11-11] MEDS: ACETAMINOPHEN 325 MG TAB PO PRN (08:46)
[2024-11-11] MEDS: AZITHROMYCIN 250 MG TAB PO ONE (15:31)
--- NOTE | 2024-11-11 22:09 | Hospitalist Progress Note ---
Date of Service November 11, 2024 Assessment & Plan (1) Weakness: (2) Dehydration: (3) Abdominal pain: (4) Hypokalemia due to excessive gastrointestinal loss of potassium: Plan Patient is an 79-year-old female with past medical history of hypertension, HFpEF, CAD, anemia, A-fib no longer on Eliquis, HLD, mitral and tricuspid valve repairs, hereditary spherocytosis. patient presented after referral by her PCP for 4 days of diarrhea and diffuse abdominal pain as well as weakness. She endorses dyspnea on exertion when going up her stairs. Workup in the ED revealed nonspecific enteritis on AP CT as well as mild volume overload with a BNP of 901. Given patient extremely dry, will admit for IV fluids and PT OT evals for weakness. #Weakness/acute dehydration/abd pain - with watery diarrhea and diffuse abdominal pain x [address] revealed nonspecific enteritis/diarrheal illness with moderate splenomegaly. LFTs WNL, no leukocytosis, BioFire negative, afebrile. Patient with extremely dry mucous membranes on diuretics. With trace ketones in urine. stool cultures positive for EPEC -will add one time dose of 1 gr of azithromycin to cover for EPEC. will hold loperamide. no red flags #herediatry spherocytosis Patient with anemia of chronic disease and iron def. anemia. hemoglobin is stable. #Hypokalemia K+ 3.5, renal function stable. Likely 2/2 poor p.o. intake and diuretics. Holding diuretics will continue to monitor and replaced #HTN/CAD/HLD/MCKINLEY- follows with cardiology, Dr. Flores. Most recent echo 03/01 revealed EF 45 to 50%. APCT revealed mild volume overload with mild pulmonary edema, trace pleural effusions, and ascites. BNP 901, troponin 8.1 -> 5.7 Patient with extremely dry mucous membranes, no edema. Low concern for acute exacerbation of CHF on admission. - defer repeat echo as most recent < 1 year ago Holding Lasix with acute dehydration above Strict I's and O's Daily weights - continue aspirin, statin, and metoprolol - noted to have MCKINLEY chronically, being worked up by cardiology in out patient setting - being considered for stress echo VTE ppx: SCDs, low risk, plt count 121, obs status - if prolonged stay consider chemical ppx Dispo: med/surg Admission and Anticipated Discharge Date Admission Date: November 10, 2024 Subjective Patient reports she continues to have diarrhea. Physical Exam Constitutional: WD/WN, vitals as above Neck: trachea midline, no thyromegaly Respiratory: normal respiratory effort, lungs clear to auscultation Cardiovascular: RRR, no murmur, no edema Results & Data Results & Data Vital Signs (Past 12 Hours) Vital Signs Temp Pulse Pulse Resp BP BP Pulse Ox 11/11/24 20:33 83 117/68 11/11/24 14:39 36.4 C L 70 18 115/65 94 11/11/24 11:36 36.3 C L 71 15 114/64 97 O2 Del Method 11/11/24 20:33 11/11/24 14:39 Room Air 11/11/24 11:36 Room Air PG Care Time/CCT Total # of Minutes Spent Total Time Spent with Patient: Total time spent is greater than 50% in coordination of care (as documented) at patient's floor/unit and/or counseling patient: Coding Level of Care Code 18957 SUB INP/OBS CARE 3/50MIN Diagnoses Weakness R53.1 Dehydration E86.0 Abdominal pain R10.84 Abdominal location: generalized Hypokalemia due to excessive gastrointestinal loss of potassium E87.6 (3) Abdominal pain Abdominal location: generalized Qualified Code(s): R10.84 - Generalized abdominal pain
[2024-11-12 06:29] LABS: Hematocrit (blood only) 20.7 % (37.0-47.0); Hemoglobin 7.1 g/dl (12.0-16.0); Mean Corpuscular Hemoglobin 32.7 pg (25.0-34.0); Mean Corpuscular Volume 95.4 fL (80.0-100.0); Platelet Count 136 K/uL (130-400); RDW Standard Deviation 63.7 fL (36.4-46.3); Red Blood Count 2.17 M/uL (4.20-5.40); White Blood Count 3.58 K/ul (4.8-10.8)
[2024-11-12 06:43] LABS: Anion Gap 6.0 (3-11); Blood Urea Nitrogen 21.0 mg/dl (6-23); Calcium 8.6 mg/dl (8.6-10.3); Carbon Dioxide 22.0 mmol/L (21-32); Chloride 111.0 mmol/L (98-107); Creatinine Clr Calc Pharmacy 46.9 ml/min; Glucose 92.0 mg/dl (70-99(Fasting)); Magnesium 1.9 mg/dl (1.7-2.4); Potassium 3.4 mmol/L (3.5-5.1); Sodium 139.0 mmol/L (136-145)
[2024-11-12 13:15] LABS: Hematocrit (blood only) 24.0 % (37.0-47.0); Hemoglobin 7.9 g/dl (12.0-16.0)
[2024-11-12] MEDS ORDERED: SODIUM CHLORIDE 0.9% 100 ML IV PRN (13:36)
--- NOTE | 2024-11-12 22:45 | Hospitalist Progress Note ---
Date of Service November 12, 2024 Assessment & Plan (1) Weakness: (2) Dehydration: (3) Abdominal pain: (4) Hypokalemia due to excessive gastrointestinal loss of potassium: Plan Patient is an 79-year-old female with past medical history of hypertension, HFpEF, CAD, anemia, A-fib no longer on Eliquis, HLD, mitral and tricuspid valve repairs, hereditary spherocytosis. patient presented after referral by her PCP for 4 days of diarrhea and diffuse abdominal pain as well as weakness. She endorses dyspnea on exertion when going up her stairs. Workup in the ED revealed nonspecific enteritis on AP CT as well as mild volume overload with a BNP of 901. Given patient extremely dry, will admit for IV fluids and PT OT evals for weakness. #Weakness/acute dehydration/abd pain EPEC colitis - with watery diarrhea and diffuse abdominal pain x [address] revealed nonspecific enteritis/diarrheal illness with moderate splenomegaly. LFTs WNL, no leukocytosis, BioFire negative, afebrile. Patient with extremely dry mucous membranes on diuretics. With trace ketones in urine. stool cultures positive for EPEC -Patient now improved after 1 gr of azithromycin to cover for EPEC. -Diarrhea is subsiding and pain is better. -Hemoglobin is lower today due to infection and herditary spherocytosis.. #Symptomatic Anemia: Mixed anemia with anemia of inflammation and anemia of chronic disease given patient's symptoms of being dizzy and orthostatic will order one unit of PRBC. This is likely complicated by the fact that patient has hereditary spherocytosis with an active infection. #herediatry spherocytosis/ pancytopenia Patient with anemia of chronic disease and iron def. anemia. hemoglobin is lower. Platelets and WBC have also been low. #Hypokalemia K+ 3.5, renal function stable. Likely 2/2 poor p.o. intake and diuretics. Holding diuretics will continue to monitor and replaced #HTN/CAD/HLD/MCKINLEY- follows with cardiology, Dr. Flores. Most recent echo 03/01 revealed EF 45 to 50%. APCT revealed mild volume overload with mild pulmonary edema, trace pleural effusions, and ascites. BNP 901, troponin 8.1 -> 5.7 Patient with extremely dry mucous membranes, no edema. Low concern for acute exacerbation of CHF on admission. - defer repeat echo as most recent < 1 year ago Holding Lasix with acute dehydration above Strict I's and O's Daily weights - continue aspirin, statin, and metoprolol - noted to have MCKINLEY chronically, being worked up by cardiology in out patient setting - being considered for stress echo VTE ppx: SCDs, low risk, plt count 121, hold chemical due to anemia Dispo: med/surg Admission and Anticipated Discharge Date Admission Date: November 10, 2024 Subjective Patient reports feeling better after antibiotic dose was given earlier. Patient however is feeling dizzy when ambulating. Physical Exam Constitutional: WD/WN, vitals as above Neck: trachea midline, no thyromegaly Respiratory: normal respiratory effort, lungs clear to auscultation Cardiovascular: RRR, no murmur, no edema Results & Data Results & Data Vital Signs (Past 12 Hours) Vital Signs Temp Pulse Pulse Resp BP BP Pulse Ox 11/12/24 20:51 76 120/67 11/12/24 17:15 36.5 C 75 16 128/88 94 11/12/24 17:15 36.6 C 76 16 124/64 96 11/12/24 16:15 36.6 C 76 18 111/60 93 11/12/24 15:45 36.6 C 74 14 104/58 L 93 11/12/24 15:30 36.6 C 73 16 107/63 94 11/12/24 15:30 36.8 C 84 16 107/63 11/12/24 15:28 36.6 C 73 18 107/63 94 11/12/24 15:14 36.7 C 74 18 110/63 94 11/12/24 15:12 36.7 C 74 18 110/63 94 O2 Del Method 11/12/24 20:51 11/12/24 17:15 11/12/24 17:15 11/12/24 16:15 11/12/24 15:45 11/12/24 15:30 11/12/24 15:30 11/12/24 15:28 11/12/24 15:14 11/12/24 15:12 Room Air PG Care Time/CCT Total # of Minutes Spent Total Time Spent with Patient: Total time spent is greater than 50% in coordination of care (as documented) at patient's floor/unit and/or counseling patient: Coding Level of Care Code 96967 SUB INP/OBS CARE 3/50MIN Diagnoses Weakness R53.1 Dehydration E86.0 Abdominal pain R10.84 Abdominal location: generalized Hypokalemia due to excessive gastrointestinal loss of potassium E87.6 (3) Abdominal pain Abdominal location: generalized Qualified Code(s): R10.84 - Generalized abdominal pain
[2024-11-12 23:21] VITALS: TEMP 97.9
[2024-11-13 06:27] LABS: Hematocrit (blood only) 26.3 % (37.0-47.0); Hemoglobin 8.8 g/dl (12.0-16.0); Mean Corpuscular Hemoglobin 30.8 pg (25.0-34.0); Mean Corpuscular Volume 92.0 fL (80.0-100.0); Platelet Count 150 K/uL (130-400); RDW Standard Deviation 62.4 fL (36.4-46.3); Red Blood Count 2.86 M/uL (4.20-5.40); White Blood Count 4.10 K/ul (4.8-10.8)
[2024-11-13 06:49] LABS: Anion Gap 7.0 (3-11); Blood Urea Nitrogen 22.0 mg/dl (6-23); Calcium 8.6 mg/dl (8.6-10.3); Carbon Dioxide 22.0 mmol/L (21-32); Chloride 110.0 mmol/L (98-107); Creatinine Clr Calc Pharmacy 49.0 ml/min; Glucose 95.0 mg/dl (70-99(Fasting)); Magnesium 1.9 mg/dl (1.7-2.4); Potassium 3.7 mmol/L (3.5-5.1); Sodium 139.0 mmol/L (136-145)
[2024-11-13 07:08] VITALS: BP 118/71; PULSE 71; RESP 18; O2SAT 95
--- NOTE | 2024-11-13 09:09 | Gastrointestinal Consultation ---
Date of Consultation November 13, 2024 Assessment & Plan (1) Anemia: With regards to her diarrhea she is improving. With regards to her anemia, this diagnosis has been addressed and is a chronic issue. I do not see a need for inpatient GI evaluation and not really even outpatient GI evaluation since she sees hematology and this is a chronic and even inherited issue. She would like to go home and there is no GI issue that would say she cannot go home today. History of Present Illness Reason for Consultation: anemia Attending Physician: Gregorio Solis History of Present Illness 79 year old female who was admitted to the hospital with a week or so of diarrhea. CT suggested nonspecific enteritis. Stools studies positive for EPEC. She was noted to be anemic so GI was consulted. Patient tells me she has chronic anemia and follows with hematology. 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 Her hemoglobin is in the range it usually is. She has no issues with her stomach other than her acute issue with diarrhea. She sees no blood in her stool. She has no heartburn, indigestion, nausea or vomiting. Her last colonoscopy was in the last five years and normal. She was battling anemia prior to that colonoscopy. Her diarrhea is improving and she has had no stool today. Allergies Allergy/AdvReac Type Severity Reaction Status Date / Time chocolate flavor Allergy Severe MIGRANES Verified 11/09/24 08:25 Sulfa (Sulfonamide Allergy Severe Rash Verified 11/09/24 08:25 Antibiotics) Home Medications Medication Instructions Recorded Confirmed Type aspirin 81 mg tablet,delayed 81 mg PO QAM 05/16/18 11/09/24 History release ferrous sulfate 325 mg (65 mg 325 mg PO HS 12/24/18 11/09/24 History iron) tablet folic acid 1 mg tablet 1 mg PO HS 12/24/18 11/09/24 History acetaminophen 325 mg capsule 325 mg PO QID PRN Pain 01/01/22 11/09/24 History mecobalamin (vitamin B12) 1,000 1,000 mcg sublingual DAILY 11/17/22 11/09/24 History mcg disintegrating tablet,sublingual pyridoxine (vitamin B6) 100 mg 100 mg PO BID 11/17/22 11/09/24 History tablet metoprolol tartrate 25 mg tablet 25 mg PO BID 12/24/23 11/09/24 History furosemide 40 mg tablet (Lasix) 40 mg PO DAILY 06/24/24 11/09/24 History potassium chloride 10 mEq 10 meq PO DAILY #90 caps 08/15/24 11/09/24 Rx capsule,extended release atorvastatin 40 mg tablet 40 mg PO QAM 100 days #100 tabs 10/19/24 11/09/24 Rx alendronate 70 mg tablet See Rx Instructions .Route 11/09/24 11/09/24 Rx .COMPLEX #12 tabs ergocalciferol (vitamin D2) 1,250 1,250 mcg PO WK 11/09/24 11/09/24 History mcg (50,000 unit) capsule Patient History Medical History Anemia Temporomandibular joint disorder 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 Hgb correct to 11 today. Surgical History Hx laparoscopic cholecystectomy (12/30/18) Laparoscopic Cholecystectomy Dr. Sandhu 12/30/18 History of cardiac cath X 3-LAST ONE 2017 THAIS NOHEMI NO STENTS NEEDED History of appendectomy Family History Father Lung cancer was a smoker Mother Diabetes Brother Heart disease Sister Family history of diabetes mellitus Family/Other Family history of diabetes mellitus Spherocytosis, hereditary granddaughter Son Spherocytosis, hereditary Denies family history of Ovarian cancer Prostate cancer Breast cancer Colorectal cancer Social History Smoking Status: Never smoker Second Hand Exposure: No; Do You Dip or Chew Tobacco: No; Hx Alcohol Use: Yes Alcohol type: wine Alcohol Intake Frequency: Monthly or Less Hx Substance Use: No Preferred Language: Setswana Communication Ability: Effective Visual Impairment: Limited Hearing Ability: Normal 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 Aluminum Required: No Beliefs That Will Affect Care: None marital status: Current Living Situation: Spouse current occupational status: retired How many Children do You have: 2 Other Information That Helps Us Care for You: No Feels Safe at Home: Yes Safety Concerns: Feels Safe At This Time Childhood Exposure to Second-Hand Smoke: Yes Diet: regular Diet Comment: well balanced caffeine: Yes (sometimes) during the past year weight has: remained stable Dental Care, Regularly: Yes Physical Activity Frequency: Daily Physical Activity Frequency Comment: does garden when she can, walks the dog Seatbelt Use: always Sunscreen Use: Yes Assistive Devices: None Review of Systems Review of Systems: All systems reviewed & are unremarkable except as noted in HPI & below Physical Exam Physical Exam: Pleasant female in no distress Constitutional: WD/WN, vitals as above Neck: trachea midline, no thyromegaly Respiratory: normal respiratory effort, lungs clear to auscultation Cardiovascular: RRR, no murmur, no edema Gastrointestinal (Abdomen): normal bowel sounds, soft, nontender, no hepatosplenomegaly Results & Data Vital Signs (Past 12 Hours) Vital Signs Temp Pulse Pulse Resp BP BP Pulse Ox 11/13/24 07:07 36.6 C 71 18 118/71 95 11/12/24 23:17 36.6 C 68 16 103/62 97 O2 Del Method 11/13/24 07:07 Room Air 11/12/24 23:17 Room Air Laboratory Results 11/13/24 11/12/24 11/12/24 Range/Units 06:06 12:59 05:36 WBC 4.10 L (4.8-10.8) K/ul RBC 2.86 L (4.20-5.40) M/uL Hgb 8.8 L 7.9 L (12.0-16.0) g/dl Hct 26.3 L 24.0 L (37.0-47.0) % MCV 92.0 (80.0-100.0) fL MCH 30.8 (25.0-34.0) pg MCHC 33.5 (32.0-36.0) g/dL RDW Std Deviation 62.4 H (36.4-46.3) fL RDW Coeff of James 19.3 H (11.5-14.5) % Plt Count 150 (130-400) K/uL MPV 9.9 (9.4-12.4) fL Sodium 139 (136-145) mmol/L Potassium 3.7 (3.5-5.1) mmol/L Chloride 110 H (98-107) mmol/L Carbon Dioxide 22 (21-32) mmol/L Anion Gap 7 (3-11) BUN 22 (6-23) mg/dl Creatinine 0.68 (0.6-1.2) mg/dl Est Cr Clr Drug Dosing 49.0 ml/min eGFR 87.44 BUN/Creatinine Ratio 32.4 H (10-20) Glucose 95 (70-99(Fasting)) mg/dl Calcium 8.6 (8.6-10.3) mg/dl Phosphorus 3.2 (2.5-4.9) mg/dl Magnesium 1.9 (1.7-2.4) mg/dl Procalcitonin 0.11 0.12 (0-0.5) ng/ml Blood Type Antibody Screen Crossmatch 11/10/24 Range/Units 23:24 WBC (4.8-10.8) K/ul RBC (4.20-5.40) M/uL Hgb (12.0-16.0) g/dl Hct (37.0-47.0) % MCV (80.0-100.0) fL MCH (25.0-34.0) pg MCHC (32.0-36.0) g/dL RDW Std Deviation (36.4-46.3) fL RDW Coeff of James (11.5-14.5) % Plt Count (130-400) K/uL MPV (9.4-12.4) fL Sodium (136-145) mmol/L Potassium (3.5-5.1) mmol/L Chloride (98-107) mmol/L Carbon Dioxide (21-32) mmol/L Anion Gap (3-11) BUN (6-23) mg/dl Creatinine (0.6-1.2) mg/dl Est Cr Clr Drug Dosing ml/min eGFR BUN/Creatinine Ratio (10-20) Glucose (70-99(Fasting)) mg/dl Calcium (8.6-10.3) mg/dl Phosphorus (2.5-4.9) mg/dl Magnesium (1.7-2.4) mg/dl Procalcitonin (0-0.5) ng/ml Blood Type A Positive Antibody Screen NEGATIVE Crossmatch See Detail Diagnostic Findings Abdomen/Pelvis CT 11/09/24 09:[address] WITH IV CONTRAST CT DOSE: 372.37 mGy.cm HISTORY: Acute generalized abdominal pain with diarrhea and weakness abd pain TECHNIQUE: Multiaxial CT images of the abdomen and pelvis were performed following the IV administration of 94 cc of Optiray, A dose lowering technique was utilized adhering to the principles of ALARA. COMPARISON STUDY: Chest CT 08/25/2024 FINDINGS: Cardiomegaly with median sternotomy. Aortic and mitral prosthetic valves with coronary artery calcifications. Trace pleural effusions. Not appearing calcified granuloma of the basal right lower lobe. Mild intralobular septal thickening. No pneumatosis or pneumoperitoneum. The spleen is enlarged measuring up to 17 cm in length. Unremarkable pancreas and adrenal glands. Cholecystectomy with likely postoperative common bile duct dilation measuring 9 mm. Moderate periportal edema. Patency of the hepatic and portal veins. Subcentimeter probable cyst of the liver on image 51 series 3. No hydronephrosis. Subcentimeter hypodense lesion of the right kidney is too small to characterize. Partial distention of the urinary bladder. Unremarkable uterus. Atherosclerosis of the aorta and branch vessels. Unchanged water attenuating ovoid structure within the right retrocrural space on image 61 series 3. Subcentimeter retroperitoneal lymph nodes are present. Mild nonspecific distal esophageal wall thickening. Small volume of abdominopelvic ascites. Internal hemorrhoids are noted with varicosities in the perirectal tissues. Extensive colonic diverticulosis without definite CT evidence of acute diverticulitis. Scattered large and small bowel air-fluid levels. Several loops of small bowel demonstrates circumferential wall thickening. The appendix is not clearly seen. Right adnexal calcified foci are present. Lymph nodes in the right lower quadrant mesentery measuring up to 8 mm. Mild generalized body wall edema. Tarlov cysts of the sacrum. IMPRESSION: 1. Cardiomegaly with volume overload consisting of mild interstitial pulmonary edema, trace pleural effusions, small volume abdominal pelvic ascites with anasarca. 2. Colonic diverticulosis without acute diverticulitis. 3. Scattered large and small bowel air-fluid levels with several loops of small bowel demonstrating circumferential wall thickening. Findings may represent a nonspecific enteritis/diarrhea illness. 4. Moderate to marked splenomegaly. 5. Additional findings as above. ACT 112: Negative or not required by law. The above report was generated using voice recognition software. It may contain grammatical, syntax or spelling errors. Electronically signed by: Juan Jose Griffith M.D. 11/09/2024 12:18 PM Chest X-Ray 11/09/24 09:55 SINGLE VIEW CHEST CLINICAL HISTORY: Dyspnea FINDINGS: An AP, portable, upright chest radiograph is compared to study dated 06/06/2024 and correlated with chest CT dated 08/25/2024. The patient is status post midline sternotomy and cardiac valve surgeries. The heart is enlarged noting atherosclerotic calcification of the thoracic aorta. The pulmonary vasculature is noncongested. Chronic interstitial thickening is similar to previous. There is bibasilar scarring/atelectasis. No airspace consolidation or large pleural effusion is identified. No pneumothorax is seen. The skeletal structures are osteopenic. The bony thorax is grossly intact. Cholecystectomy clips are noted in the right upper quadrant. IMPRESSION: Cardiomegaly with no acute cardiopulmonary abnormality identified. ACT 112: Negative or not required by law. Electronically signed by: Nikunj Colin M.D. 11/09/2024 10:12 AM
--- NOTE | 2024-11-13 10:09 | Discharge Summary ---
Discharge Summary Date of Service November 13, 2024 Principal Dx & Hospital Course #1 = Principal Diagnosis (1) Weakness: (2) Dehydration: (3) Abdominal pain: (4) Hypokalemia due to excessive gastrointestinal loss of potassium: Plan Patient is an 79-year-old female with past medical history of hypertension, HFpEF, CAD, anemia, A-fib no longer on Eliquis, HLD, mitral and tricuspid valve repairs, hereditary spherocytosis. patient presented after referral by her PCP for 4 days of diarrhea and diffuse abdominal pain as well as weakness. She endorses dyspnea on exertion when going up her stairs. Workup in the ED revealed nonspecific enteritis on AP CT as well as mild volume overload with a BNP of 901. Given patient extremely dry, will admit for IV fluids and PT OT evals for weakness. #Weakness/acute dehydration/abd pain EPEC colitis - with watery diarrhea and diffuse abdominal pain x [address] revealed nonspecific enteritis/diarrheal illness with moderate splenomegaly. LFTs WNL, n o leukocytosis, BioFire negative, afebrile. Patient with extremely dry mucous membranes on diuretics. With trace ketones in urine. stool cultures positive for EPEC -Patient now improved after 1 gr of azithromycin to cover for EPEC. -Diarrhea is subsiding and pain is better. -Hemoglobin is lower today due to infection and herditary spherocytosis.. #Symptomatic Anemia: Mixed anemia with anemia of inflammation and anemia of chronic disease given patient's symptoms of being dizzy and orthostatic will order one unit of PRBC. This is likely complicated by the fact that patient has hereditary spherocytosis with an active infection. #herediatry spherocytosis/ pancytopenia Patient with anemia of chronic disease and iron def. anemia. hemoglobin is lower. Platelets and WBC have also been low. #Hypokalemia K+ 3.5, renal function stable. Likely 2/2 poor p.o. intake and diuretics. Holding diuretics will continue to monitor and replaced #HTN/CAD/HLD/MCKINLEY- follows with cardiology, Dr. Flores. Most recent echo 03/01 revealed EF 45 to 50%. APCT revealed mild volume overload with mild pulmonary edema, trace pleural effusions, and ascites. BNP 901, troponin 8.1 -> 5.7 Patient with extremely dry mucous membranes, no edema. Low concern for acute exacerbation of CHF on admission. - defer repeat echo as most recent < 1 year ago Holding Lasix with acute dehydration above Strict I's and O's Daily weights - continue aspirin, statin, and metoprolol - noted to have MCKINLEY chronically, being worked up by cardiology in out patient setting - being considered for stress echo VTE ppx: SCDs, low risk, plt count 121, hold chemical due to anemia Dispo: med/surg Admission HPI Per Admitting Provider Patient is an 79-year-old female with past medical history of hypertension, HFpEF, CAD, anemia, A-fib no longer on Eliquis, HLD, mitral and tricuspid valve repairs, hereditary spherocytosis. patient presented after referral by her PCP for 4 days of diarrhea and diffuse abdominal pain as well as weakness. She endorses dyspnea on exertion when going up her stairs. Workup in the ED revealed nonspecific enteritis on AP CT as well as mild volume overload with a BNP of 901. Given patient extremely dry we will admit for IV fluids, and PT OT evals for weakness. Patient seen at bedside. She stated she has had several days of watery diarrhea however was better today and she only had 1 episode of more formed stools this morning. She denies any hematochezia. She also has had diffuse abdominal pain that comes and goes. Denies any nausea or vomiting. Patient has felt extremely weak over the past few days and like her legs will not hold her up, she endorses dyspnea on exertion and heart palpitations when going up her stairs. She has had an extremely poor appetite and has been unable to tolerate much p.o. intake while still taking Lasix 40 mg daily. She has tried to drink drinks with electrolytes in them. She denies any fevers, chills, chest pain, lower extremity edema. She took her morning medications today including Lasix. She wishes to be DNR/DNI. Hand off from ER provider stated that she spoke with GI who believes this may be more related to CHF. Discharge Plan Discharge Items Patient Disposition: Home - Self-Care Reason For Visit: WEAKNESS, DEHYDRATION Discharge Diagnosis: weakness, dehydration Condition on Discharge: Good Activity: Resume your previous activity Non-emergency contact: Primary Care Provider Call non-emergency contact if: you have any medication questions Follow-up/Referrals: Rusty Sheikh DO [Primary Care Provider] - 11/21/24 11:30 am Diet: Regular Addtl Attending Provider Instructions: Good morning Mrs. Plasencia, You were treated for a gastrointestinal infection which typically improves with supportive care. However you required a one time dose of an oral antibiotic. Thankfully, your symptoms improved within 24 hours. Given that you already have hereditary spherocytosis, this in combination with your stomach infection, led to a breakdown of your red blood cells which required that you have a transfusion. Now that you are feeling better,and blood work looks stable, you can be discharged. I recommend you followup with your PCP in 1-2 weeks. It was a pleasure. Dr. Gregorio Solis Pending Studies at Discharge: No Stand-Alone Forms: My [facility] [employer], Smoking Cessation Medications and DC Order Prescriptions: Continued potassium chloride 10 mEq capsule, extended release 10 meq PO DAILY Qty: 90 3RF atorvastatin 40 mg tablet 40 mg PO QAM 100 Days Qty: 100 3RF alendronate 70 mg tablet See Rx Instructions .ROUTE .COMPLEX Qty: 12 3RF Dose Instruction: TAKE ONE TABLET WEEKLY in the morning on an empty stomach. dont lie down for the next 30 minutes. Rx Instructions: TAKE ONE TABLET WEEKLY in the morning on an empty stomach. dont lie down for the next 30 minutes. acetaminophen 325 mg capsule 325 mg PO QID PRN (Reason: Pain) mecobalamin (vitamin B12) 1,000 mcg tablet,disintegrating 1,000 mcg sublingual DAILY Rx Instructions: place tablet under tongue and allow to dissolve for at least30 secs before swallowing pyridoxine (vitamin B6) 100 mg tablet 100 mg PO BID metoprolol tartrate 25 mg tablet 25 mg PO BID aspirin 81 mg Tablet,Delayed Release (Dr/Ec) 81 mg PO QAM ferrous sulfate 325 mg (65 mg iron) Tablet 325 mg PO HS folic acid 1 mg Tablet 1 mg PO HS ergocalciferol (vitamin D2) 1,250 mcg (50,000 unit) capsule 1,250 mcg PO WK Rx Instructions: Take 1 capsule weekly Held furosemide [Lasix] 40 mg tablet 40 mg PO DAILY Hold Instructions: Resume on 11/16/24. resume day after diarrhea resolves. Anticipate this should be Thursday. Discharge Orders: Discharge Order (Routine); Ordered 11/13/24 Ordered By: Gregorio Solis Admission Data Admit Date/Time: 11/10/24 14:18 Attending Provider: Gregorio Solis Admit Provider: Gregorio Solis Primary Care Provider: Rusty Sheikh Other Providers: Gregorio Solis; Jerry Ojeda; Francois Holbrook; Cynthia Abbasi; Skylar Singh; Tenisha Fleming; Doris Kemp; Markos Franco; Verónica Yepez; Jason Foley; Lori Ge; Dana Rosales; Linda Arredondo; Priti Aguilar; Leticia Woodall; Gayla Wayne; Jose Juan Jones; King Lester; Nicolette Brooke; Anali Mensah Jr; Curtis Warner; Demarco Nunez; Lucas Parker; Alber Wooten; Lenora Jose; Dangelo Horta I; Julia Alexander; Kt Dozier; Travis Pemberton; Freddy Edmondson; Caden Varner Hospital Stay Data Consultations 11/09/24 15:34 ED Decision to Admit Stat 11/12/24 09:11 Consult Gastroenterology Routine Diagnostic Imagining Performed 11/09/24 09:55 CT abd pelvis IV con only Stat Pending Results Patient Have Any Pending Studies at Discharge: No Discharge Instructions Given to Patient (Per Discharging Provider) Good morning Mrs. Plasencia, Corey were treated for a gastrointestinal infection which typically improves with supportive care. However you required a one time dose of an oral antibiotic. Thankfully, your symptoms improved within 24 hours. Given that you already have hereditary spherocytosis, this in combination with your stomach infection, led to a breakdown of your red blood cells which required that you have a transfusion. Now that you are feeling better,and blood work looks stable, you can be discharged. I recommend you followup with your PCP in 1-2 weeks. It was a pleasure. Dr. Gregorio Solis Coding Diagnoses Weakness R53.1 Dehydration E86.0 Abdominal pain R10.84 Abdominal location: generalized Hypokalemia due to excessive gastrointestinal loss of potassium E87.6
== END 2024-11-13 11:37 | disposition home or self-care (01) | DRG 372 ==
LOC: EDINP 09:20 → ED 09:20 → SUATTDRO 16:05 → EDINP 16:20 → 3E 17:58